=== PATIENT | female | born 1955 | race Caucasian/White ===

== ENCOUNTER 2020-08-08 13:54 | Outpatient (REF) | payer OTHER, SELFPAY ==
[2020-08-08 15:21] LABS: Cholesterol 143 mg/dL; HDL Cholesterol 67 mg/dL; LDL Cholesterol Calculated 54 mg/dl; Triglycerides 113 mg/dL
[2020-08-08 15:45] LABS: Thyroid Stimulating Hormone 4.54 uIU/mL (0.32-4.0)
== END 2020-08-08 13:55 | disposition home or self-care (01) ==
LOC: HO.LAB 13:54
PROVIDERS: PCP Internal Medicine; Visit Provider Internal Medicine
DX: I10 Essential (primary) hypertension (principal)
CPT/HCPCS: 36415; 80061; 84443

== ENCOUNTER 2020-12-11 15:52 | Outpatient (REF) | payer OTHER, SELFPAY ==
--- NOTE | ~2020-12-11 | XR_ITS ---
EXAMINATION: XR KNEE, LEFT CLINICAL INFORMATION: Pain in left knee. COMPARISON: None TECHNIQUE: AP and lateral views of the knee are obtained including AP view with weightbearing. FINDINGS: There is no focal joint narrowing or erosive change or chondrocalcinosis. No suprapatellar effusion. Hoffa's fat pad and deep infrapatellar recess are unremarkable. There is no fracture or dislocation or destructive process. XR/XR knee LT 2V IMPRESSION: Unremarkable left knee.
== END 2020-12-11 15:53 | disposition home or self-care (01) ==
LOC: HO.XRAY 15:52
PROVIDERS: PCP Internal Medicine; Visit Provider Internal Medicine
DX: M25.562 Pain in left knee (principal)
CPT/HCPCS: 73560

== ENCOUNTER 2020-12-14 14:45 | Outpatient (REF) | payer OTHER, SELFPAY ==
[2020-12-14 15:41] LABS: Cholesterol 139 mg/dL; HDL Cholesterol 60 mg/dL; LDL Cholesterol Calculated 57 mg/dl; Triglycerides 113 mg/dL
[2020-12-14 15:57] LABS: Erythrocyte Sedimentation Rate 34 MM/HR (0-20)
== END 2020-12-14 14:46 | disposition home or self-care (01) ==
LOC: HO.LAB 14:45
PROVIDERS: PCP Internal Medicine; Visit Provider Internal Medicine
DX: E03.9 Hypothyroidism, unspecified (principal); I10 Essential (primary) hypertension; E11.9 Type 2 diabetes mellitus without complications
CPT/HCPCS: 36415; 80061; 84443; 85652

== ENCOUNTER 2021-05-02 12:37 | Outpatient (REF) | payer OTHER, SELFPAY ==
[2021-05-02 13:35] LABS: Cholesterol 144 mg/dL; HDL Cholesterol 83 mg/dL; LDL Cholesterol Calculated 45 mg/dl; Triglycerides 80 mg/dL
== END 2021-05-02 12:38 | disposition home or self-care (01) ==
LOC: HO.LAB 12:37
PROVIDERS: PCP Internal Medicine; Visit Provider Internal Medicine
DX: E11.9 Type 2 diabetes mellitus without complications (principal)
CPT/HCPCS: 36415; 80061

== ENCOUNTER 2021-12-28 13:24 | Outpatient (REF) | payer MEDICARE, OTHER, SELFPAY ==
[2021-12-28 13:46] LABS: MANUAL DIFF FLAG NO
[2021-12-28 14:12] LABS: Basophils Percent Auto 0.5 % (0-2); Eosinophils Absolute Auto 0.1 X10*3/uL (0.0-0.4); Eosinophils Percent Auto 1.2 % (0-4); Hematocrit 33.2 % (37.0-47.0); Hemoglobin 11.3 g/dl (12.0-16.0); Imm Gran Abs Auto 0.04 X10*3/uL (0.00-0.03); Imm Gran Pct Auto 0.7 % (0.0-0.4); Lymphocytes Absolute Auto 1.8 X10*3/uL (1.2-4.9); Lymphocytes Percent Auto 29.5 % (20-40); Mean Corpuscular Hemoglobin 33.3 pg (27.0-33.0); Mean Corpuscular Volume 97.9 fL (80.0-98.0); Mean Platelet Volume 9.5 fL (9.4-12.3); Monocytes Absolute Auto 0.7 X10*3/uL (0.1-1.2); Monocytes Percent Auto 11.8 % (2-11); Neutrophils Absolute Auto 3.4 x10*3/uL (2.0-8.3); Neutrophils Percent Auto 56.3 % (45-73); Platelet Count 179 X10*3/uL (160-400); Red Blood Count 3.39 X10*6/uL (4.20-5.50); Red Cell Distribution Width 13.4 % (11.0-16.0)
[2021-12-28 14:34] LABS: Alanine Aminotransferase 35 U/L (0-31); Albumin Level 3.7 g/dL (3.5-5.0); Alkaline Phosphatase 72 U/L (39-117); Anion Gap 12 (12-20); Aspartate Amino Transferase 47 U/L (5-31); Bilirubin Total 0.4 mg/dL (0.0-1.0); Blood Urea Nitrogen 9 mg/dL (9-16); Carbon Dioxide 25 mmol/L (22-29); Chloride 100 mmol/L (96-108); Cholesterol 132 mg/dL; Estimated Glomerular Filt Rate > 60; Glucose Fasting 89 mg/dL (60-99); HDL Cholesterol 53 mg/dL; LDL Cholesterol Calculated 64 mg/dl; Potassium 5.3 mmol/L (3.3-5.1); Sodium 132 mmol/L (135-145); Total Protein 6.2 g/dL (6.5-8.0); Triglycerides 76 mg/dL
== END 2021-12-28 13:25 | disposition home or self-care (01) ==
LOC: HO.LAB 13:24
PROVIDERS: PCP Internal Medicine; Visit Provider Internal Medicine
DX: Z00.00 Encounter for general adult medical examination without abnormal findings (principal); Z13.0 Encounter for screening for diseases of the blood and blood-forming organs and certain disorders involving the immune mechanism
CPT/HCPCS: 36415; 80053; 80061; 85025

== ENCOUNTER 2022-01-04 14:54 | Outpatient (REF) | payer MEDICARE, OTHER, SELFPAY ==
--- NOTE | ~2022-01-04 | XR_ITS ---
EXAMINATION: XR LUMBOSACRAL SPINE CLINICAL INFORMATION: Dorsalis. COMPARISON: Radiograph of the lumbar spine 09/17/2011. TECHNIQUE: Three views of the lumbosacral spine. FINDINGS: No acute compression deformity or malalignment. Radiopaque disc material at T11-T12, stable since 2011. Mild multilevel disc space narrowing. Moderate facet arthropathy at L5-S1. Symmetric sacroiliac joints with mild sclerosis. Atherosclerotic disease of the abdominal aorta. XR/XR lumbar spine 2-3V IMPRESSION: No acute compression deformity or malalignment. Mild to moderate L5-S1 spondylosis.
== END 2022-01-04 14:55 | disposition home or self-care (01) ==
LOC: HO.XRAY 14:54
PROVIDERS: PCP Internal Medicine; Visit Provider Internal Medicine
DX: M54.9 Dorsalgia, unspecified (principal)
CPT/HCPCS: 72100

== ENCOUNTER 2022-05-02 13:55 | Outpatient (REF) | payer MEDICARE, OTHER, SELFPAY ==
[2022-05-02 15:11] LABS: Cholesterol 141 mg/dL; HDL Cholesterol 65 mg/dL; LDL Cholesterol Calculated 53 mg/dl; Triglycerides 117 mg/dL
== END 2022-05-02 13:56 | disposition home or self-care (01) ==
LOC: HO.LAB 13:55
PROVIDERS: PCP Internal Medicine; Visit Provider Internal Medicine
DX: E78.5 Hyperlipidemia, unspecified (principal)
CPT/HCPCS: 36415; 80061

== ENCOUNTER 2022-09-27 15:17 | Outpatient (REF) | payer MEDICARE, OTHER, SELFPAY ==
--- NOTE | ~2022-09-27 | US_ITS ---
EXAMINATION: US VENOUS ULTRASOUND WITH DOPPLER LOWER EXTREMITY, BILATERAL CLINICAL INFORMATION: Localized edema. COMPARISON: None available. TECHNIQUE: Ultrasound of the deep veins is performed from the hip to the calf with compression sonography and color and pulse Doppler assessment. Spectral analysis with color-flow imaging is performed. FINDINGS: RIGHT: There is normal venous compression and respiratory variation and augmented flow. The visualized common femoral vein, superficial femoral vein, profunda femoral vein, popliteal vein, and the trifurcation region shows no evidence of deep venous thrombosis. There is no significant popliteal fossa cyst. LEFT: There is normal venous compression and respiratory variation and augmented flow. The visualized common femoral vein, superficial femoral vein, profunda femoral vein, popliteal vein, and the trifurcation region shows no evidence of deep venous thrombosis. There is no significant popliteal fossa cyst. If the patient's symptoms persist, followup ultrasound in 5 days 7 days might be of value to exclude proximal propagation from a non-visualized calf vein. US/US venous duplex LE BI IMPRESSION: No DVT demonstrated in the bilateral lower extremity.
== END 2022-09-27 15:18 | disposition home or self-care (01) ==
LOC: HO.US 15:17
PROVIDERS: PCP Internal Medicine; Visit Provider Internal Medicine
DX: R60.0 Localized edema (principal)
CPT/HCPCS: 93970

== ENCOUNTER 2022-10-04 18:56 | Emergency (ER) | payer MEDICARE, OTHER, SELFPAY ==
--- NOTE | ~2022-10-04 | US_ITS ---
EXAMINATION: NONINVASIVE ASSESSMENT OF THE ARTERIES OF BOTH LOWER EXTREMITIES Hieu Jones MD CLINICAL INFORMATION: Bilateral lower extremity pain, edema and decreased flow to the feet TECHNIQUE: Bilateral lower extremity duplex ultrasound was performed with velocity measurements and waveform analysis in the common femoral arteries, profunda femoris arteries, proximal mid and distal superficial femoral arteries, popliteal arteries and tibial vessels. This study was performed only at rest. COMPARISON: None FINDINGS: Velocities in cm/sec and phasicity as well as the presence of plaque are reported below. RIGHT LEG: Scattered plaque is seen. Velocity acceleration in the common femoral artery may be secondary to mild nonhemodynamically significant stenosis. Good multiphasic flow is noted throughout the right lower extremity. Common Femoral: 245 Profunda Femoris: 209 Proximal SFA: 112 Mid SFA: 123 Distal SFA: 170 Popliteal: 117 Posterior tibial artery: 160 LEFT LEG: Scattered plaque is seen with the largest area in the common femoral artery with areas of velocity acceleration indicative of nonhemodynamically significant stenosis. Good multiphasic flow is noted throughout the left lower extremity. Common Femoral: 195 Profunda Femoris: 108 Proximal SFA: 137 Mid SFA: 116 Distal SFA: 112 Popliteal: 76 Posterior tibial artery: 69 US/US arterial duplex LE BI IMPRESSION: There is no evidence of any hemodynamically significant lower extremity arterial disease by waveform or duplex Doppler criteria at rest.
--- NOTE | ~2022-10-04 | US_ITS ---
EXAMINATION: US VENOUS ULTRASOUND WITH DOPPLER LOWER EXTREMITY, BILATERAL CLINICAL INFORMATION: Edema. COMPARISON: 09/27/2022. TECHNIQUE: Ultrasound of the deep veins is performed from the hip to the calf with compression sonography and color and pulse Doppler assessment. Spectral analysis with color-flow imaging is performed. FINDINGS: RIGHT: There is normal venous compression and respiratory variation and augmented flow. The visualized common femoral vein, superficial femoral vein, profunda femoral vein, popliteal vein, and the trifurcation region shows no evidence of deep venous thrombosis. There is no significant popliteal fossa cyst. LEFT: There is normal venous compression and respiratory variation and augmented flow. The visualized common femoral vein, superficial femoral vein, profunda femoral vein, popliteal vein, and the trifurcation region shows no evidence of deep venous thrombosis. There is no significant popliteal fossa cyst. If the patient's symptoms persist, followup ultrasound in 5 days 7 days might be of value to exclude proximal propagation from a non-visualized calf vein. US/US venous duplex LE BI IMPRESSION: No DVT demonstrated in the bilateral lower extremities.
--- NOTE | 2022-10-04 19:09 | ED_ITS ---
HPI - General Adult General Chief complaint: General Medical <JAVIER Acosta - Last Filed: 10/04/22 19:11> Stated complaint: Swelling in R leg <JAVIER Acosta - Last Filed: 10/04/22 19:11> Time Seen by Provider: 10/04/22 22:23 <JAVIER Acosta - Last Filed: 10/04/22 19:11> Source: patient <Mike Sarmiento MD - Last Filed: 10/04/22 23:20> Mode of arrival: ambulatory <Mike Sarmiento MD - Last Filed: 10/04/22 23:20> Limitations: no limitations <Mike Sarmiento MD - Last Filed: 10/04/22 23:20> History of Present Illness HPI narrative: Patient has history of hypertension, dyslipidemia, coronary disease status post RAMO 2007 in mid LAD with history of gout on probenecid last flare up was about 6 years ago. Comes here for right ankle pain and swelling last 2 weeks patient was seen by PCP and had venous Doppler done on 09/27 which was negative patient was triaged and again had arterial Doppler and venous Doppler done which both are negative patient feels throbbing pain even when she is not moving her ankle <Mike Sarmiento MD - Last Filed: 10/04/22 23:20> Related Data Home medications: Home Medications Medication Instructions Recorded Confirmed aspirin 81 mg tablet,delayed 81 mg PO DAILY 12/11/20 09/27/22 release (Adult Low Dose Aspirin) lisinopril 10 mg tablet 10 mg PO DAILY 12/11/20 09/27/22 metoprolol tartrate 25 mg tablet 25 mg PO BID 12/11/20 09/27/22 multivitamin 1 tab PO DAILY 12/11/20 09/27/22 rosuvastatin 40 mg tablet 40 mg PO DAILY 12/11/20 09/27/22 Previous Rx's Medication Instructions Recorded probenecid 500 mg tablet 500 mg PO DAILY #90 tabs 06/29/22 colchicine 0.6 mg tablet 0.6 mg PO BID #20 tabs 10/04/22 prednisone 20 mg tablet 40 mg PO DAILY #10 tabs 10/04/22 <JAVIER Acosta - Last Filed: 10/04/22 19:11> Allergies/adverse reactions: Allergies Allergy/AdvReac Type Severity Reaction Status Date / Time allopurinol [ALLOPURINOL] Allergy Intermediate RASH Verified 09/27/22 14:34 <JAVIER Acosta - Last Filed: 10/04/22 19:11> Review of Systems Review of Systems: Yes all other systems are reviewed and are negative <Mike Sarmiento MD - Last Filed: 10/04/22 23:20> [facility] Past Medical History Medical History: Medical History (Updated 10/04/22 @ 23:19 by Mike Sarmiento MD) Gout Hypertension <JAVIER Acosta - Last Filed: 10/04/22 19:11> Surgical History: Surgical History H/O left wrist surgery History of cardiac catheterization <JAVIER Acosta - Last Filed: 10/04/22 19:11> Family History Family History: Family History Father Heart disease Mother Heart disease Brother No problems noted. Sister No problems noted. Sister No problems noted. Son No problems noted. Son No problems noted. <JAVIER Acosta - Last Filed: 10/04/22 19:11> Social History Social History: Social History Housing: House Alcohol intake: current Alcohol intake frequency: holidays/special occasions only Patient Tobacco Use Status: Former Tobacco user Tobacco use type: Cigarette e-Cigarette/Vaping Use: Never Used Second Hand Smoke Exposure: No Advance Directives: No Advance Directives Information Provided: No service: No Current occupational status: retired Cognitive needs: No Hearing needs: No Vision needs: No <JAVIER Acosta - Last Filed: 10/04/22 19:11> Physical Exam ED Vital Signs: Vital Signs - 24 hr 10/04/22 19:20 Temperature 98.5 F Pulse Rate 77 Respiratory Rate 16 Blood Pressure 184/77 H Pulse Oximetry 100 Oxygen Delivery Method Room Air BMI result Body Mass Index 19.4 <JAVIER Acosta - Last Filed: 10/04/22 19:11> Vital Signs - 24 hr 10/04/22 19:20 Temperature 98.5 F Pulse Rate 77 Respiratory Rate 16 Blood Pressure 184/77 H Pulse Oximetry 100 Oxygen Delivery Method Room Air BMI result Body Mass Index 19.4 <Mike Sarmiento MD - Last Filed: 10/04/22 23:20> Appearance: Alert. Oriented X3. No acute distress. Eyes: No pallor or icterus ENT: Pharynx normal. Oral Mucosa moist Neck: Normal inspection. Neck supple. CVS: Normal heart rate and rhythm. Pulses normal. Respiratory: No respiratory distress. Equal air entry bilateral, no wheezing/rales/rhonchi Abdomen: Soft and nontender. Bowel sounds are present, no mass palpable, no CVA tenderness Skin: Skin warm and dry. Normal skin color. Normal skin turgor. Extremities: Trace edema right leg diffuse right ankle joint swelling with local warmth and tenderness, No calf tenderness Neuro: Oriented X 3. No motor deficit. <Mike Sarmiento MD - Last Filed: 10/04/22 23:20> Course Course Course Narrative: RME performed by Natalie Banks PA-C. Patient is a 67 year old assigned female at presenting to the emergency department with bilateral foot swelling and pain. Patient states that for the last 2 weeks she has had bilateral feet swelling and pain. Labs and imaging ordered. Patient placed back in the waiting room pending room availability and results. <Cortez Acosta - Last Filed: 10/04/22 19:11> Medications Administered Discontinued Medications Generic Name Dose Route Start Last Admin Trade Name Freq PRN Reason Stop Dose Admin Colchicine 0.6 mg 10/04/22 22:37 10/04/22 23:06 Colchicine 0.6 Mg Tablet PO 10/04/22 22:38 0.6 mg ONCE ONE Administration Prednisone 40 mg 10/04/22 22:37 10/04/22 23:06 Prednisone 20 Mg Tablet PO 10/04/22 22:38 40 mg ONCE ONE Administration <JAVIER Acosta - Last Filed: 10/04/22 19:11> Medications Administered Discontinued Medications Generic Name Dose Route Start Last Admin Trade Name Freq PRN Reason Stop Dose Admin Colchicine 0.6 mg 10/04/22 22:37 10/04/22 23:06 Colchicine 0.6 Mg Tablet PO 10/04/22 22:38 0.6 mg ONCE ONE Administration Prednisone 40 mg 10/04/22 22:37 10/04/22 23:06 Prednisone 20 Mg Tablet PO 10/04/22 22:38 40 mg ONCE ONE Administration <Mike Sarmiento MD - Last Filed: 10/04/22 23:20> Medical Decision Making Medical Decision Making [facility] Narrative: Patient clinically with gouty arthritis history of gout attack about 6 years ago. Patient is on probenecid although uric acid level is normal possible patient has a flare uop will discharge patient home on colchicine and prednisone <Mike Sarmiento MD - Last Filed: 10/04/22 23:20> Lab Data [facility] Lab Attestation statement: I reviewed the patient's lab results. <Mike Sarmiento MD - Last Filed: 10/04/22 23:20> Result Diagrams: 10/04/22 21:00 10/04/22 21:00 <JAVIER Acosta - Last Filed: 10/04/22 19:11> Labs: Lab Results 10/04/22 10/04/22 10/04/22 Range/Units 21:00 21:00 21:00 WBC 6.8 (4.8-10.8) X10*3/uL RBC 3.48 L (4.20-5.50) X10*6/uL Hgb 12.1 (12.0-16.0) g/dl Hct 36.2 L (37.0-47.0) % MCV 104.0 H (80.0-98.0) fL MCH 34.8 H (27.0-33.0) pg MCHC 33.4 (31.0-35.0) g/dl RDW 13.2 (11.0-16.0) % Plt Count 284 D (160-400) X10*3/uL MPV 9.5 (9.4-12.3) fL Immature Gran % (Auto) 0.4 (0.0-0.4) % Neut % (Auto) 51.0 (45-73) % Lymph % (Auto) 38.2 (20-40) % Morrill % (Auto) 8.9 (2-11) % Eos % (Auto) 0.9 (0-4) % Baso % (Auto) 0.6 (0-2) % Lymph # (Auto) 2.6 (1.2-4.9) X10*3/uL Morrill # (Auto) 0.6 (0.1-1.2) X10*3/uL Eos # (Auto) 0.1 (0.0-0.4) X10*3/uL Baso # (Auto) 0.0 (0.0-0.2) X10*3/uL Abs Immat Gran (auto) 0.03 (0.00-0.03) X10*3/uL Absolute Neuts (auto) 3.4 (2.0-8.3) x10*3/uL Absolute Nucleated RBC 0.000 (0.0-0.012) X10*3/uL Nucleated RBC % (auto) 0.0 (0.0-0.2) /100WBC ESR 38 H (0-20) MM/HR PT (10.0-13.1) SEC INR (0.9-1.1) APTT (26.0-36.4) SEC Sodium 138 (135-145) mmol/L Potassium 4.2 D (3.3-5.1) mmol/L Chloride 103 (96-108) mmol/L Carbon Dioxide 25 (22-29) mmol/L Anion Gap 14 (12-20) BUN 6 L (9-16) mg/dL Creatinine 1.03 (0.5-1.4) mg/dL Estim Creat Clear Calc 39.6 Estimated GFR 54 Random Glucose 107 (60-115) mg/dL Uric Acid 3.6 (2.4-5.7) mg/dL Calcium 9.7 D (8.4-10.2) mg/dL Magnesium 2.0 (1.6-2.6) mg/dL Total Bilirubin 0.3 (0.0-1.0) mg/dL AST 35 H (5-31) U/L ALT 14 (0-31) U/L Alkaline Phosphatase 145 H (39-117) U/L C-Reactive Protein 0.54 H (< or = 0.50) mg/dL Total Protein 7.1 (6.5-8.0) g/dL Albumin 4.0 (3.5-5.0) g/dL 04/14/23 Range/Units 21:00 WBC (4.8-10.8) X10*3/uL RBC (4.20-5.50) X10*6/uL Hgb (12.0-16.0) g/dl Hct (37.0-47.0) % MCV (80.0-98.0) fL MCH (27.0-33.0) pg MCHC (31.0-35.0) g/dl RDW (11.0-16.0) % Plt Count (160-400) X10*3/uL MPV (9.4-12.3) fL Immature Gran % (Auto) (0.0-0.4) % Neut % (Auto) (45-73) % Lymph % (Auto) (20-40) % Morrill % (Auto) (2-11) % Eos % (Auto) (0-4) % Baso % (Auto) (0-2) % Lymph # (Auto) (1.2-4.9) X10*3/uL Morrill # (Auto) (0.1-1.2) X10*3/uL Eos # (Auto) (0.0-0.4) X10*3/uL Baso # (Auto) (0.0-0.2) X10*3/uL Abs Immat Gran (auto) (0.00-0.03) X10*3/uL Absolute Neuts (auto) (2.0-8.3) x10*3/uL Absolute Nucleated RBC (0.0-0.012) X10*3/uL Nucleated RBC % (auto) (0.0-0.2) /100WBC ESR (0-20) MM/HR PT 9.3 L (10.0-13.1) SEC INR 0.8 L (0.9-1.1) APTT 31.1 (26.0-36.4) SEC Sodium (135-145) mmol/L Potassium (3.3-5.1) mmol/L Chloride (96-108) mmol/L Carbon Dioxide (22-29) mmol/L Anion Gap (12-20) BUN (9-16) mg/dL Creatinine (0.5-1.4) mg/dL Estim Creat Clear Calc Estimated GFR Random Glucose (60-115) mg/dL Uric Acid (2.4-5.7) mg/dL Calcium (8.4-10.2) mg/dL Magnesium (1.6-2.6) mg/dL Total Bilirubin (0.0-1.0) mg/dL AST (5-31) U/L ALT (0-31) U/L Alkaline Phosphatase (39-117) U/L C-Reactive Protein (< or = 0.50) mg/dL Total Protein (6.5-8.0) g/dL Albumin (3.5-5.0) g/dL <JAVIER Acosta - Last Filed: 10/04/22 19:11> Lab Results 10/04/22 10/04/22 10/04/22 Range/Units 21:00 21:00 21:00 WBC 6.8 (4.8-10.8) X10*3/uL RBC 3.48 L (4.20-5.50) X10*6/uL Hgb 12.1 (12.0-16.0) g/dl Hct 36.2 L (37.0-47.0) % MCV 104.0 H (80.0-98.0) fL MCH 34.8 H (27.0-33.0) pg MCHC 33.4 (31.0-35.0) g/dl RDW 13.2 (11.0-16.0) % Plt Count 284 D (160-400) X10*3/uL MPV 9.5 (9.4-12.3) fL Immature Gran % (Auto) 0.4 (0.0-0.4) % Neut % (Auto) 51.0 (45-73) % Lymph % (Auto) 38.2 (20-40) % Morrill % (Auto) 8.9 (2-11) % Eos % (Auto) 0.9 (0-4) % Baso % (Auto) 0.6 (0-2) % Lymph # (Auto) 2.6 (1.2-4.9) X10*3/uL Morrill # (Auto) 0.6 (0.1-1.2) X10*3/uL Eos # (Auto) 0.1 (0.0-0.4) X10*3/uL Baso # (Auto) 0.0 (0.0-0.2) X10*3/uL Abs Immat Gran (auto) 0.03 (0.00-0.03) X10*3/uL Absolute Neuts (auto) 3.4 (2.0-8.3) x10*3/uL Absolute Nucleated RBC 0.000 (0.0-0.012) X10*3/uL Nucleated RBC % (auto) 0.0 (0.0-0.2) /100WBC ESR 38 H (0-20) MM/HR PT (10.0-13.1) SEC INR (0.9-1.1) APTT (26.0-36.4) SEC Sodium 138 (135-145) mmol/L Potassium 4.2 D (3.3-5.1) mmol/L Chloride 103 (96-108) mmol/L Carbon Dioxide 25 (22-29) mmol/L Anion Gap 14 (12-20) BUN 6 L (9-16) mg/dL Creatinine 1.03 (0.5-1.4) mg/dL Estim Creat Clear Calc 39.6 Estimated GFR 54 Random Glucose 107 (60-115) mg/dL Uric Acid 3.6 (2.4-5.7) mg/dL Calcium 9.7 D (8.4-10.2) mg/dL Magnesium 2.0 (1.6-2.6) mg/dL Total Bilirubin 0.3 (0.0-1.0) mg/dL AST 35 H (5-31) U/L ALT 14 (0-31) U/L Alkaline Phosphatase 145 H (39-117) U/L C-Reactive Protein 0.54 H (< or = 0.50) mg/dL Total Protein 7.1 (6.5-8.0) g/dL Albumin 4.0 (3.5-5.0) g/dL 10/04/22 Range/Units 21:00 WBC (4.8-10.8) X10*3/uL RBC (4.20-5.50) X10*6/uL Hgb (12.0-16.0) g/dl Hct (37.0-47.0) % MCV (80.0-98.0) fL MCH (27.0-33.0) pg MCHC (31.0-35.0) g/dl RDW (11.0-16.0) % Plt Count (160-400) X10*3/uL MPV (9.4-12.3) fL Immature Gran % (Auto) (0.0-0.4) % Neut % (Auto) (45-73) % Lymph % (Auto) (20-40) % Morrill % (Auto) (2-11) % Eos % (Auto) (0-4) % Baso % (Auto) (0-2) % Lymph # (Auto) (1.2-4.9) X10*3/uL Morrill # (Auto) (0.1-1.2) X10*3/uL Eos # (Auto) (0.0-0.4) X10*3/uL Baso # (Auto) (0.0-0.2) X10*3/uL Abs Immat Gran (auto) (0.00-0.03) X10*3/uL Absolute Neuts (auto) (2.0-8.3) x10*3/uL Absolute Nucleated RBC (0.0-0.012) X10*3/uL Nucleated RBC % (auto) (0.0-0.2) /100WBC ESR (0-20) MM/HR PT 9.3 L (10.0-13.1) SEC INR 0.8 L (0.9-1.1) APTT 31.1 (26.0-36.4) SEC Sodium (135-145) mmol/L Potassium (3.3-5.1) mmol/L Chloride (96-108) mmol/L Carbon Dioxide (22-29) mmol/L Anion Gap (12-20) BUN (9-16) mg/dL Creatinine (0.5-1.4) mg/dL Estim Creat Clear Calc Estimated GFR Random Glucose (60-115) mg/dL Uric Acid (2.4-5.7) mg/dL Calcium (8.4-10.2) mg/dL Magnesium (1.6-2.6) mg/dL Total Bilirubin (0.0-1.0) mg/dL AST (5-31) U/L ALT (0-31) U/L Alkaline Phosphatase (39-117) U/L C-Reactive Protein (< or = 0.50) mg/dL Total Protein (6.5-8.0) g/dL Albumin (3.5-5.0) g/dL <Mike Sarmiento MD - Last Filed: 10/04/22 23:20> Discharge Plan Discharge Clinical Impression: Acute gouty arthritis <JAVIER Acosta - Last Filed: 10/04/22 19:11> Patient Disposition: Home, Self-Care <JAVIER Acosta - Last Filed: 10/04/22 19:11> Instructions: Gout (ED) <JAVIER Acosta - Last Filed: 10/04/22 19:11> Additional Instructions: Likely you have gout that causing the pain in right ankle Medication as prescribed Follow with PCP if not better <JAVIER Acosta - Last Filed: 10/04/22 19:11> Prescriptions: New prednisone 20 mg tablet 40 mg PO DAILY Qty: 10 0RF colchicine 0.6 mg tablet 0.6 mg PO BID Qty: 20 0RF No Action probenecid 500 mg tablet 500 mg PO DAILY Qty: 90 8RF rosuvastatin 40 mg tablet 40 mg PO DAILY metoprolol tartrate 25 mg tablet 25 mg PO BID lisinopril 10 mg tablet 10 mg PO DAILY multivitamin Tablet 1 tab PO DAILY aspirin [Adult Low Dose Aspirin] 81 mg tablet,delayed release (DR/EC) 81 mg PO DAILY <JAVIER Acosta - Last Filed: 10/04/22 19:11> [place]: [facility] [place] (Call to establish and follow up with a vascular surgeon to discuss your bilateral venous stasis dermatitis. ) <JAVIER Acosta - Last Filed: 10/04/22 19:11>
[2022-10-04 19:20] VITALS: BP 184/77; PULSE 77; RESP 16; TEMP 36.9; O2SAT 100; BMI 19.4
[2022-10-04 21:14] LABS: MANUAL DIFF FLAG NO
[2022-10-04 21:16] LABS: Basophils Percent Auto 0.6 % (0-2); Eosinophils Absolute Auto 0.1 X10*3/uL (0.0-0.4); Eosinophils Percent Auto 0.9 % (0-4); Hematocrit 36.2 % (37.0-47.0); Hemoglobin 12.1 g/dl (12.0-16.0); Imm Gran Abs Auto 0.03 X10*3/uL (0.00-0.03); Imm Gran Pct Auto 0.4 % (0.0-0.4); Lymphocytes Absolute Auto 2.6 X10*3/uL (1.2-4.9); Lymphocytes Percent Auto 38.2 % (20-40); Mean Corpuscular HGB Conc 33.4 g/dl (31.0-35.0); Mean Corpuscular Hemoglobin 34.8 pg (27.0-33.0); Mean Platelet Volume 9.5 fL (9.4-12.3); Monocytes Absolute Auto 0.6 X10*3/uL (0.1-1.2); Monocytes Percent Auto 8.9 % (2-11); Neutrophils Absolute Auto 3.4 x10*3/uL (2.0-8.3); Platelet Count 284 X10*3/uL (160-400); Red Blood Count 3.48 X10*6/uL (4.20-5.50); Red Cell Distribution Width 13.2 % (11.0-16.0); White Blood Count 6.8 X10*3/uL (4.8-10.8)
[2022-10-04 21:24] LABS: INTERNATIONAL NORM RATIO 0.8 (0.9-1.1); Prothrombin Time 9.3 SEC (10.0-13.1)
[2022-10-04 21:26] LABS: Partial Thromboplastin Time 31.1 SEC (26.0-36.4)
[2022-10-04 21:40] LABS: Alanine Aminotransferase 14 U/L (0-31); Alkaline Phosphatase 145 U/L (39-117); Anion Gap 14 (12-20); Aspartate Amino Transferase 35 U/L (5-31); Bilirubin Total 0.3 mg/dL (0.0-1.0); Blood Urea Nitrogen 6 mg/dL (9-16); C Reactive Protein 0.54 mg/dL (< or = 0.50); Calcium 9.7 mg/dL (8.4-10.2); Carbon Dioxide 25 mmol/L (22-29); Chloride 103 mmol/L (96-108); Creatinine Clr Calc Pharmacy 39.6; Estimated Glomerular Filt Rate 54; Glucose Random 107 mg/dL (60-115); Potassium 4.2 mmol/L (3.3-5.1); Sodium 138 mmol/L (135-145); Total Protein 7.1 g/dL (6.5-8.0)
[2022-10-04 21:57] LABS: Erythrocyte Sedimentation Rate 38 MM/HR (0-20)
[2022-10-04] MEDS: Colchicine 0.6 MG TABLET PO (23:06)
[2022-10-04] MEDS: predniSONE 20 MG TABLET 40 MG PO (23:06)
[2022-10-04 23:07] LABS: Uric Acid 3.6 mg/dL (2.4-5.7)
== END 2022-10-04 23:32 | disposition home or self-care (01) ==
PROVIDERS: Physician Assistant Medical; Emergency Provider Internal Medicine
DX: M10.9 Gout, unspecified (principal); R60.0 Localized edema; M79.604 Pain in right leg; M79.605 Pain in left leg; I10 Essential (primary) hypertension; E78.5 Hyperlipidemia, unspecified; Z79.82 Long term (current) use of aspirin; Z79.899 Other long term (current) drug therapy; Z79.02 Long term (current) use of antithrombotics/antiplatelets
CPT/HCPCS: 36415; 80053; 83735; 84550; 85025; 85610; 85652; 85730; 86140; 93925; 93970; 99282; 99284

== ENCOUNTER 2023-01-24 11:45 | Outpatient (REF) | payer MEDICARE, OTHER, SELFPAY ==
[2023-01-24 15:10] LABS: Cholesterol 136 mg/dL; HDL Cholesterol 66 mg/dL; LDL Cholesterol Calculated 52 mg/dl; Triglycerides 90 mg/dL
== END 2023-01-24 11:46 | disposition home or self-care (01) ==
LOC: HO.LAB 11:45
PROVIDERS: PCP Internal Medicine; Visit Provider Internal Medicine
DX: E78.5 Hyperlipidemia, unspecified (principal)
CPT/HCPCS: 36415; 80061

== ENCOUNTER 2023-01-27 14:15 | Outpatient (AMB) | payer MEDICARE, OTHER, SELFPAY ==
[2023-01-27 14:24] VITALS: BP 128/78; PULSE 64; O2SAT 98; BMI 21.5
--- NOTE | 2023-01-27 14:24 | A.OFFPC_ITS ---
Vital Signs 01/27/23 14:24 Height 5 ft 1 in Weight 114 lb BMI 21.5 BP 128/78 Blood Pressure Location Lt brachial Position Sitting Pulse 64 Pulse Source Pulse Oximeter Pulse Oximetry (%) 98 Oxygen Delivery Method Room Air Intake Visit Reasons: 4mth f/u Allergies allopurinol [ALLOPURINOL] Allergy (Intermediate, Verified 01/27/23 14:25) RASH Medication List - Last Reconciled 01/28/23 by Ralf Talavera MD aspirin (Adult Low Dose Aspirin) 81 mg PO DAILY colchicine (gout) 0.6 mg PO BID lisinopril 10 mg PO DAILY metoprolol tartrate 25 mg PO BID multivitamin 1 tab PO DAILY prednisone 40 mg (2 x 20 mg) PO DAILY probenecid 500 mg PO BID rosuvastatin 40 mg PO DAILY Tobacco use date assessed: 09/27/22 Fall risk assessment: No Falls in past year Last assessed Fall Risk: 01/27/23 Dental Screening Dental Screen Date: 01/27/23 Did you have a dental visit in the last 12 months?: Yes Did you have a dental problem in the last 6 months where you did not have access to dental care?: No Was dental information given to patient?: Patient has dentist HPI 4mth f/u HPI Details HTN hyperlipidemia and gout; stable on rx PFSH Medical History (Updated 01/28/23 @ 09:30 by Ralf Talavera MD) Gout Hypertension Surgical History H/O left wrist surgery History of cardiac catheterization Family History Father Heart disease Mother Heart disease Brother No problems noted. Sister No problems noted. Sister No problems noted. Son No problems noted. Son No problems noted. Social History Housing: House Alcohol intake: current Alcohol intake frequency: holidays/special occasions only Patient Tobacco Use Status: Former Tobacco user Tobacco use type: Cigarette e-Cigarette/Vaping Use: Never Used Second Hand Smoke Exposure: No service: No Current occupational status: retired Cognitive needs: No Hearing needs: No Vision needs: No Questionnaire PHQ-9 Over the last 2 weeks, how often have you been bothered by any of the following problems? 1. Little interest or pleasure in doing things: not at all 2. Feeling down, depressed, or hopeless: not at all 3. Trouble falling or staying asleep, or sleeping too much: not at all 4. Feeling tired or having little energy: not at all 5. Poor appetite or overeating: not at all 6. Feeling bad about yourself - or that you are a failure or have let yourself or your family down: not at all 7. Trouble concentrating on things, such as reading the newspaper or watching television: not at all 8. Moving or speaking so slowly that other people could have noticed. Or the opposite - being so fidgety or restless that you have been moving around a lot more than usual: not at all 9. Thoughts that you would be better off or of hurting yourself in some way: not at all Total score: 0 Depression Screening Interpretation: Negative Source: Developed by Drs. Leonel Fields, Victoria Rodriguez, Edwin Resendez and colleagues, with an educational neli from [employer]. Thrive Questionnaire Date Thrive assessed: 09/27/22 Currently or been in a relationship where the following occur: no concerns reported AUDIT C Alcohol Use Questionnaire (AUDIT-C) 1. How often do you have a drink containing alcohol?: Monthly or less Total Score: 1 Score Reviewed/Action Taken: Yes MADELYN-7 AMB Questionnaire MADELYN-7 Date MADELYN - 7 assessed: 09/27/22 Source: Developed by Drs. Leonel Fields, Victoria Rodriguez, Edwin Resendez and colleagues, with an educational neli from [employer]. Review of Systems Const Denies chills, Denies headache(s) and Denies weight loss ENT Denies headache(s) Card Denies chest pain, Denies syncope, Denies irregular heart rhythm and Denies dyspnea Resp Denies chest congestion, Denies cough and Denies dyspnea GI Denies abdominal pain, Denies change in stool character, Denies nausea and Denies vomiting Musc Denies deformity and Denies joint swelling Neuro Denies syncope and Denies headache(s) Physical exam (Primary Care) Vital Signs: Last Vital Signs Pulse 64 01/27/23 14:24 BP 128/78 01/27/23 14:24 Pulse Ox 98 01/27/23 14:24 Oxygen Delivery Method Room Air 01/27/23 14:24 BMI result Body Mass Index 21.5 Tobacco/Smoking Status: Tobacco use Status Tobacco use date assessed 09/27/22 01/27/23 14:28 Patient Tobacco Use Status Former Tobacco user 01/27/23 14:28 Tobacco use type Cigarette 01/27/23 14:28 e-Cigarette/Vaping Use Never Used 01/27/23 14:28 PHQ-9: PHQ-9 Score PHQ-9: Total score 0 01/27/23 14:28 Depression Screening Interpretation: Negative Thrive Assessment: Date of Thrive Assessment Date Thrive assessed 09/27/22 01/27/23 14:28 Currently or been in a relationship where the following occur: no concerns reported Const General: cooperative, healthy appearing, comfortable and no acute distress Resp Effort & Inspection: normal respiratory effort Auscultation: clear to auscultation bilaterally Percussion: percussion normal Cardio Jugular venous distension: no JVD Rate: regular rate Rhythm: regular rhythm GI Inspection: Yes normal to inspection Assessment and Plan Assessment & Plan (1) Hyperlipidemia: Code(s): E78.5 - Hyperlipidemia, unspecified Plan: stable; same rx (2) Hypertension: Code(s): I10 - Essential (primary) hypertension Plan: stable; same rx (3) Gout: Code(s): M10.9 - Gout, unspecified Plan: stable Orders: Orders Lipid Panel 01/27/23 E78.5 - Hyperlipidemia, unspecified Uric Acid 01/27/23 M10.9 - Gout, unspecified Medications: Changed From probenecid 500 mg PO DAILY 90 tabs 8RF To probenecid 500 mg PO BID 180 tabs 8RF Coding Level of Care Code Est Pt Level 4 (43394) Diagnoses Hyperlipidemia E78.5 Hypertension I10 Gout M10.9
== END 2023-01-27 14:41 | disposition home or self-care (01) ==
PROVIDERS: Visit Provider Internal Medicine
DX: E78.5 Hyperlipidemia, unspecified (principal); I10 Essential (primary) hypertension; M10.9 Gout, unspecified
CPT/HCPCS: 99214

== ENCOUNTER 2023-09-03 12:54 | Outpatient (REF) | payer MEDICARE, OTHER, SELFPAY ==
[2023-09-03 14:55] LABS: Cholesterol 136 mg/dL (<200); HDL Cholesterol 68 mg/dL (>40); LDL Cholesterol Calculated 40 mg/dL (<100); Triglycerides 142 mg/dL (<150)
[2023-09-03 16:22] LABS: Uric Acid 3.9 mg/dL (2.4-5.7)
== END 2023-09-03 12:55 | disposition home or self-care (01) ==
LOC: HO.LAB 12:54
PROVIDERS: PCP Internal Medicine; Visit Provider Internal Medicine
DX: M10.9 Gout, unspecified (principal); E78.5 Hyperlipidemia, unspecified
CPT/HCPCS: 36415; 80061; 84550

== ENCOUNTER 2023-09-04 11:40 | Outpatient (AMB) | payer MEDICARE, OTHER, SELFPAY ==
[2023-09-04 11:41] VITALS: BP 122/66; PULSE 71; O2SAT 100; BMI 22.9
--- NOTE | 2023-09-04 11:41 | MHC.PC.OV ---
Vital Signs 09/04/23 11:41 Height 5 ft 1 in Weight 121 lb BMI 22.9 BP 122/66 Blood Pressure Location Lt brachial Position Sitting Pulse 71 Pulse Source Pulse Oximeter Pulse Oximetry (%) 100 Oxygen Delivery Method Room Air Intake Visit Reasons: 6 month f/u Systems Consultant Required: No Insurance Licensing Supervisor: Not Required per policy Accompanied by: Self / Same As Patient Allergies allopurinol [ALLOPURINOL] Allergy (Intermediate, Verified 09/04/23 11:41) RASH Medication List - Last Reconciled 09/05/23 by Ralf Talavera MD aspirin (Adult Low Dose Aspirin) 81 mg PO DAILY lisinopril 10 mg PO DAILY metoprolol tartrate 25 mg PO BID multivitamin 1 tab PO DAILY probenecid 500 mg PO BID rosuvastatin 40 mg PO DAILY Tobacco use date assessed: 09/04/23 Fall risk assessment: No Falls in past year Last assessed Fall Risk: 09/04/23 Dental Screening Dental Screen Date: 09/04/23 Did you have a dental visit in the last 12 months?: Yes Did you have a dental problem in the last 6 months where you did not have access to dental care?: No Was dental information given to patient?: Patient has dentist HPI 6 month f/u HPI Details HTN hyperlip and gout on rx; doing well and compliant [facility] Medical History Gout Hypertension Surgical History History of cardiac catheterization H/O left wrist surgery Family History Father Heart disease Mother Heart disease Brother No problems noted. Sister No problems noted. Sister No problems noted. Son No problems noted. Son No problems noted. Social History Housing: House Alcohol intake: current Alcohol intake frequency: holidays/special occasions only Patient Tobacco Use Status: Former Tobacco user Tobacco use type: Cigarette e-Cigarette/Vaping Use: Never Used Second Hand Smoke Exposure: No service: No Current occupational status: retired Cognitive needs: No Hearing needs: No Vision needs: No Questionnaire PHQ-9 Over the last 2 weeks, how often have you been bothered by any of the following problems? 1. Little interest or pleasure in doing things: not at all 2. Feeling down, depressed, or hopeless: not at all 3. Trouble falling or staying asleep, or sleeping too much: not at all 4. Feeling tired or having little energy: not at all 5. Poor appetite or overeating: not at all 6. Feeling bad about yourself - or that you are a failure or have let yourself or your family down: not at all 7. Trouble concentrating on things, such as reading the newspaper or watching television: not at all 8. Moving or speaking so slowly that other people could have noticed. Or the opposite - being so fidgety or restless that you have been moving around a lot more than usual: not at all 9. Thoughts that you would be better off or of hurting yourself in some way: not at all Total score: 0 Depression Screening Interpretation: Negative Depression Screening Done: Yes 16442 - PHQ-9 Billing: Yes Source: Developed by Drs. Leonel Fields, Victoria Rodriguez, Edwin Resendez and colleagues, with an educational neli from [employer]. Thrive Questionnaire Date Thrive assessed: 09/04/23 I am a: Patient What is your living situation today?: I have a steady place to live Within the past 12 months, did the food you bought not last and you didn't have the money to get more?: Never true Within the past 12 months, did you worry whether your food would run out before you got money to buy more?: Never true Do you have trouble paying for medicines?: No Do you have trouble getting transportation to medical appointments?: No Do you have trouble paying your heating and electricity bill?: No Do you have trouble taking care of your child, family member or friend?: No Do you have trouble with day-to-day activities such as bathing, preparing meals, shopping, managing finances, etc.?: No Are you currently unemployed and looking for a job?: No Are you interested in more education?: No Please select the resources that you would like help with: None THRIVE Score: 0 AUDIT C Alcohol Use Questionnaire (AUDIT-C) 1. How often do you have a drink containing alcohol?: Monthly or less Total Score: 1 Score Reviewed/Action Taken: Yes MADELYN-7 AMB Questionnaire MADELYN-7 Date MADELYN - 7 assessed: 09/04/23 Feeling nervous, anxious, or on edge: 0 = Not at all Not being able to stop or control worryin = Not at all Worrying too much about different things: 0 = Not at all Trouble relaxin = Not at all Being so restless that it is hard to sit still: 0 = Not at all Becoming easily annoyed or irritable: 0 = Not at all Feeling afraid as if something awful might happen: 0 = Not at all Total MADELYN-7 score (0-4 normal; 5-9 mild; 10-14 moderate; 15-21 severe): 0 Source: Developed by Drs. Leonel Fields, Victoria Rodriguez, Edwin Resendez and colleagues, with an educational neli from [employer]. MADELYN-7 Assessment Billing MADELYN-7 Assessment Tool: MADELYN-7 Assessment 40943 Review of Systems Const Denies chills, Denies headache(s) and Denies weight loss ENT Denies headache(s) Card Denies chest pain, Denies syncope, Denies irregular heart rhythm and Denies dyspnea Resp Denies chest congestion, Denies cough and Denies dyspnea GI Denies abdominal pain, Denies change in stool character, Denies nausea and Denies vomiting Musc Denies deformity and Denies joint swelling Neuro Denies syncope and Denies headache(s) Physical exam (Primary Care) Vital Signs: Last Vital Signs Pulse 71 09/04/23 11:41 BP 122/66 09/04/23 11:41 Pulse Ox 100 09/04/23 11:41 Oxygen Delivery Method Room Air 09/04/23 11:41 BMI result Body Mass Index 22.9 Tobacco/Smoking Status: Tobacco use Status Tobacco use date assessed 09/04/23 09/04/23 11:47 Patient Tobacco Use Status Former Tobacco user 09/04/23 11:47 Tobacco use type Cigarette 09/04/23 11:47 e-Cigarette/Vaping Use Never Used 09/04/23 11:47 PHQ-9: PHQ-9 Score PHQ-9: Total score 0 09/04/23 11:47 Depression Screening Interpretation: Negative Thrive Assessment: Date of Thrive Assessment Date Thrive assessed 09/04/23 09/04/23 11:47 Const General: cooperative, comfortable, no acute distress and alert Neck Neck: Yes no lymphadenopathy Thyroid: Thyroid normal Resp Effort & Inspection: normal respiratory effort Auscultation: clear to auscultation bilaterally Percussion: percussion normal Cardio Jugular venous distension: no JVD Palpation: normal PMI Rate: regular rate Rhythm: regular rhythm Heart sounds: S1 normal heart sound present and S2 normal heart sound present GI Inspection: Yes normal to inspection Palpation (GI): No hepatosplenomegaly present Skin General skin exam: no rashes or lesions noted Extrem General: Yes no clubbing, cyanosis or edema Assessment and Plan Assessment & Plan (1) Gout: Code(s): M10.9 - Gout, unspecified Plan: stable; same rx (2) Hyperlipidemia: Code(s): E78.5 - Hyperlipidemia, unspecified Plan: stable; same rx (3) Hypertension: Code(s): I10 - Essential (primary) hypertension Plan: stable; same rx Orders: Orders Lipid Panel Today E78.5 - Hyperlipidemia, unspecified Uric Acid Today M10.9 - Gout, unspecified Coding Level of Care Code Est Pt Level 4 (94870) Diagnoses Gout M10.9 Hyperlipidemia E78.5 Hypertension I10 Additional Codes MADELYN-7 Assessment Billing - MADELYN-7 Assessment Tool: MADELYN-7 Assessment [id number] ([id number])
== END 2023-09-04 11:58 | disposition home or self-care (01) ==
PROVIDERS: PCP Internal Medicine; Visit Provider Internal Medicine
DX: M10.9 Gout, unspecified (principal); E78.5 Hyperlipidemia, unspecified; I10 Essential (primary) hypertension
CPT/HCPCS: 99214

== ENCOUNTER 2024-01-08 14:10 | Outpatient (AMB) | payer MEDICARE, OTHER, SELFPAY ==
--- NOTE | 2024-01-08 14:13 | MHC.PC.OV ---
Vital Signs 01/08/24 14:14 Height 5 ft 1 in Weight 120 lb 4 oz BMI 22.7 BP 120/72 Blood Pressure Location Lt brachial Position Sitting Pulse 75 Pulse Source Pulse Oximeter Pulse Oximetry (%) 99 Oxygen Delivery Method Room Air Intake Visit Reasons: 4 Month F/U Intake Note: Patient is here to follow up on HLD, HTN. Boiler/Chiller Technician Required: No Residential Green Building Designer: Not Required per policy Accompanied by: Self / Same As Patient Allergies allopurinol [ALLOPURINOL] Allergy (Intermediate, Verified 01/08/24 14:14) RASH Medication List - Last Reconciled 01/09/24 by Ralf Talavera MD aspirin (Adult Low Dose Aspirin) 81 mg PO DAILY lisinopril 10 mg PO DAILY metoprolol tartrate 25 mg PO BID multivitamin 1 tab PO DAILY probenecid 500 mg PO BID rosuvastatin 40 mg PO DAILY Tobacco use date assessed: 01/08/24 Fall risk assessment: No Falls in past year Last assessed Fall Risk: 01/08/24 Dental Screening Dental Screen Date: 09/04/23 HPI 4 Month F/U HPI Details HTN on Rx; doing well and compliant [facility] Medical History Gout Hypertension Surgical History History of cardiac catheterization H/O left wrist surgery Family History Father Heart disease Mother Heart disease Brother No problems noted. Sister No problems noted. Sister No problems noted. Son No problems noted. Son No problems noted. Social History Housing: House Alcohol intake: current Alcohol intake frequency: holidays/special occasions only Patient Tobacco Use Status: Former Tobacco user Tobacco use type: Cigarette e-Cigarette/Vaping Use: Never Used Second Hand Smoke Exposure: No service: No Current occupational status: retired Cognitive needs: No Hearing needs: No Vision needs: No Questionnaire Thrive Questionnaire Date Thrive assessed: 09/04/23 MADELYN-7 AMB Questionnaire MADELYN-7 Date MADELYN - 7 assessed: 09/04/23 Source: Developed by Drs. Leonel L. DonnieVictoria oliveira, Edwin Resendez and colleagues, with an educational neli from [employer]. Review of Systems Const Denies chills, Denies headache(s) and Denies weight loss ENT Denies headache(s) Card Denies chest pain, Denies syncope, Denies irregular heart rhythm and Denies dyspnea Resp Denies chest congestion, Denies cough and Denies dyspnea GI Denies abdominal pain, Denies change in stool character, Denies nausea and Denies vomiting Musc Denies deformity and Denies joint swelling Neuro Denies syncope and Denies headache(s) Physical exam (Primary Care) Vital Signs: Last Vital Signs Pulse 75 01/08/24 14:14 BP 120/72 01/08/24 14:14 Pulse Ox 99 01/08/24 14:14 Oxygen Delivery Method Room Air 01/08/24 14:14 BMI result Body Mass Index 22.7 Tobacco/Smoking Status: Tobacco use Status Tobacco use date assessed 01/08/24 01/08/24 14:18 Patient Tobacco Use Status Former Tobacco user 01/08/24 14:18 Tobacco use type Cigarette 01/08/24 14:18 e-Cigarette/Vaping Use Never Used 01/08/24 14:18 Thrive Assessment: Date of Thrive Assessment Date Thrive assessed 09/04/23 01/08/24 14:18 Const General: cooperative, comfortable, no acute distress and alert Neck Neck: Yes no lymphadenopathy Thyroid: Thyroid normal Resp Effort & Inspection: normal respiratory effort Auscultation: clear to auscultation bilaterally Percussion: percussion normal Cardio Jugular venous distension: no JVD Palpation: normal PMI Rate: regular rate Rhythm: regular rhythm Heart sounds: S1 normal heart sound present and S2 normal heart sound present GI Inspection: Yes normal to inspection Palpation (GI): No hepatosplenomegaly present Skin General skin exam: no rashes or lesions noted Extrem General: Yes no clubbing, cyanosis or edema Assessment and Plan Assessment & Plan (1) Hypertension: Code(s): I10 - Essential (primary) hypertension Plan: stable; same rx Orders: Orders Lipid Panel Today Z13.220 - Encounter for screening for lipoid disorders Complete Blood Count Auto Diff Today Z13.0 - Encounter for screening for diseases of the blood and blood-forming organs and certain disorders involving the immune mechanism Comprehensive [place]. Panel Fast Today Z13.9 - Encounter for screening, unspecified Coding Level of Care Code Est Pt Level 3 (11778) Diagnoses Hypertension I10
[2024-01-08 14:14] VITALS: BP 120/72; PULSE 75; O2SAT 99; BMI 22.7
== END 2024-01-08 14:25 | disposition home or self-care (01) ==
PROVIDERS: PCP Internal Medicine; Visit Provider Internal Medicine
DX: I10 Essential (primary) hypertension (principal)
CPT/HCPCS: 99213

== ENCOUNTER 2024-04-29 12:00 | Outpatient (REF) | payer MEDICARE, OTHER, SELFPAY ==
[2024-04-29 12:45] LABS: MANUAL DIFF FLAG NO
[2024-04-29 12:52] LABS: Basophils Percent Auto 0.4 % (0-2); Eosinophils Absolute Auto 0.1 X10*3/uL (0.0-0.4); Eosinophils Percent Auto 0.8 % (0-4); Hematocrit 32.4 % (37.0-47.0); Hemoglobin 11.2 g/dl (12.0-16.0); Imm Gran Abs Auto 0.03 X10*3/uL (0.00-0.03); Imm Gran Pct Auto 0.4 % (0.0-0.4); Lymphocytes Absolute Auto 2.1 X10*3/uL (1.2-4.9); Lymphocytes Percent Auto 26.4 % (20-40); Mean Corpuscular HGB Conc 34.6 g/dl (31.0-35.0); Mean Corpuscular Hemoglobin 34.1 pg (27.0-33.0); Mean Corpuscular Volume 98.8 fL (80.0-98.0); Mean Platelet Volume 9.5 fL (9.4-12.3); Monocytes Absolute Auto 0.7 X10*3/uL (0.1-1.2); Monocytes Percent Auto 8.4 % (2-11); Neutrophils Absolute Auto 5.1 x10*3/uL (2.0-8.3); Neutrophils Percent Auto 63.6 % (45-73); Platelet Count 223 X10*3/uL (160-400); Red Blood Count 3.28 X10*6/uL (4.20-5.50)
[2024-04-29 13:26] LABS: Alanine Aminotransferase 19 U/L (0-31); Alkaline Phosphatase 87 U/L (39-117); Anion Gap 16 (12-20); Aspartate Amino Transferase 46 U/L (5-31); Bilirubin Total 0.4 mg/dL (0.0-1.0); Blood Urea Nitrogen 15 mg/dL (9-16); Calcium 9.3 mg/dL (8.4-10.2); Carbon Dioxide 18 mmol/L (22-29); Chloride 106 mmol/L (96-108); Cholesterol 142 mg/dL (<200); Estimated Glomerular Filt Rate 53; Glucose Fasting 93 mg/dL (60-99); HDL Cholesterol 72 mg/dL (>40); LDL Cholesterol Calculated 49 mg/dL (<100); Potassium 4.2 mmol/L (3.3-5.1); Sodium 136 mmol/L (135-145); Total Protein 7.2 g/dL (6.5-8.0); Triglycerides 105 mg/dL (<150); Uric Acid 4.2 mg/dL (2.4-5.7)
== END 2024-04-29 12:01 | disposition home or self-care (01) ==
LOC: HO.LAB 12:00
PROVIDERS: PCP Internal Medicine; Visit Provider Internal Medicine
DX: Z13.0 Encounter for screening for diseases of the blood and blood-forming organs and certain disorders involving the immune mechanism (principal); E78.5 Hyperlipidemia, unspecified; Z13.9 Encounter for screening, unspecified; M10.9 Gout, unspecified
CPT/HCPCS: 36415; 80053; 80061; 84550; 85025

== ENCOUNTER 2024-05-13 11:41 | Outpatient (AMB) | payer MEDICARE, OTHER, SELFPAY ==
--- NOTE | 2024-05-13 11:42 | MHC.PC.OV ---
Vital Signs 05/13/24 11:43 Height 5 ft 1 in Weight 122 lb 0.8 oz BMI 23.1 BP 124/62 Blood Pressure Location Lt brachial Position Sitting Pulse 86 Pulse Source Pulse Oximeter Pulse Oximetry (%) 98 Oxygen Delivery Method Room Air Intake Visit Reasons: Rsched from 05/10 4 M Follow UP Allergies allopurinol [ALLOPURINOL] Allergy (Intermediate, Verified 05/13/24 11:46) RASH Tobacco use date assessed: 01/08/24 Fall risk assessment: No Falls in past year Last assessed Fall Risk: 05/13/24 Dental Screening Dental Screen Date: 09/04/23 HPI Rsched from 05/10 4 M Follow UP HPI Details HTN on Rx; doing well and compliant with meds [facility] Medical History Gout Hypertension Surgical History History of cardiac catheterization H/O left wrist surgery Family History Father Heart disease Mother Heart disease Brother No problems noted. Sister No problems noted. Sister No problems noted. Son No problems noted. Son No problems noted. Social History Housing: House Alcohol intake: current Alcohol intake frequency: holidays/special occasions only Patient Tobacco Use Status: Former Tobacco user Tobacco use type: Cigarette e-Cigarette/Vaping Use: Never Used Second Hand Smoke Exposure: No service: No Current occupational status: retired Cognitive needs: No Hearing needs: No Vision needs: No Questionnaire Thrive Questionnaire Date Thrive assessed: 09/04/23 AUDIT C Alcohol Use Questionnaire (AUDIT-C) 1. How often do you have a drink containing alcohol?: Monthly or less Total Score: 1 Score Reviewed/Action Taken: Yes MADELYN-7 AMB Questionnaire MADELYN-7 Date MADELYN - 7 assessed: 09/04/23 Source: Developed by Drs. Leonel Fields, Victoria Rodriguez, Edwin Resendez and colleagues, with an educational neli from [employer]. Review of Systems Const Denies chills, Denies headache(s) and Denies weight loss ENT Denies headache(s) Card Denies chest pain, Denies syncope, Denies irregular heart rhythm and Denies dyspnea Resp Denies chest congestion, Denies cough and Denies dyspnea GI Denies abdominal pain, Denies change in stool character, Denies nausea and Denies vomiting Musc Denies deformity and Denies joint swelling Neuro Denies syncope and Denies headache(s) Physical exam (Primary Care) Vital Signs: Last Vital Signs Pulse 86 05/13/24 11:43 BP 124/62 05/13/24 11:43 Pulse Ox 98 05/13/24 11:43 Oxygen Delivery Method Room Air 05/13/24 11:43 BMI result Body Mass Index 23.1 Tobacco/Smoking Status: Tobacco use Status Tobacco use date assessed 01/08/24 05/13/24 11:47 Patient Tobacco Use Status Former Tobacco user 05/13/24 11:47 Tobacco use type Cigarette 05/13/24 11:47 e-Cigarette/Vaping Use Never Used 05/13/24 11:47 Thrive Assessment: Date of Thrive Assessment Date Thrive assessed 09/04/23 05/13/24 11:47 Const General: cooperative, comfortable, no acute distress and alert Neck Neck: Yes no lymphadenopathy Thyroid: Thyroid normal Resp Effort & Inspection: normal respiratory effort Auscultation: clear to auscultation bilaterally Percussion: percussion normal Cardio Jugular venous distension: no JVD Palpation: normal PMI Rate: regular rate Rhythm: regular rhythm Heart sounds: S1 normal heart sound present and S2 normal heart sound present GI Inspection: Yes normal to inspection Palpation (GI): No hepatosplenomegaly present Skin General skin exam: no rashes or lesions noted Extrem General: Yes no clubbing, cyanosis or edema Office Procedures Flu Questionnaire Does the patient have a severe egg allergy?: No Does the patient have severe life threatening allergies?: No Does the patient have a fever or illness today?: No Has the patient ever had Guillain-[place] Syndrome?: No Has the patient ever had any past reaction to a flu shot?: No Immunizations Fluarix Triv [id number] (PF) 45 mcg (15 mcg x 3)/0.5 mL IM syringe Performing Provider: Ralf Talavera MD [place] [facility] [place] [facility] [place] [facility] Administered by: ELLIOT Davis on 05/13/24 12:12 Dose Route Admin Location Dispensed Lot Number Expiration Date NDC Bottle House Quality Control Technician 0.5 mL IM Left Deltoid 0.5 mL [id number] 12/20/24 [id number] [employer] VIS Given Date VIS Provided VIS Publication Date 05/13/24 Single Vaccine 21 Eligibility Eligibility Date Funding Source Not [facility] Eligible 05/13/24 Private Coding Level of Care Code Est Pt Level 3 (71102) Diagnoses Hypertension I10 Assessment & Plan Assessment & Plan (1) Hypertension: Code(s): I10 - Essential (primary) hypertension Category: Medical Plan: stable; same rx Orders: Orders Influenza [id number] Immunization Today Z23 - Encounter for immunization
[2024-05-13 11:43] VITALS: BP 124/62; PULSE 86; O2SAT 98; BMI 23.1
== END 2024-05-13 12:15 | disposition home or self-care (01) ==
PROVIDERS: PCP Internal Medicine; Visit Provider Internal Medicine
DX: I10 Essential (primary) hypertension (principal); Z23 Encounter for immunization

== ENCOUNTER → 2024-05-13 11:41 | Outpatient (BNVA) | payer MEDICARE, OTHER, SELFPAY | PROVIDERS: PCP Internal Medicine; Visit Provider Internal Medicine | DX: Z23 Encounter for immunization (principal); I10 Essential (primary) hypertension | CPT/HCPCS: 90471; 90656; 99212 ==

== ENCOUNTER 2024-08-30 13:28 | Outpatient (AMB) | payer MEDICARE, OTHER, SELFPAY ==
--- NOTE | 2024-08-30 13:30 | MHC.PC.OV ---
Vital Signs 08/30/24 13:33 Height 5 ft 1 in Weight 123 lb 4 oz BMI 23.3 BP 120/78 Blood Pressure Location Lt brachial Position Sitting Pulse 67 Pulse Source Pulse Oximeter Temp 96.9 F Temp Source Temporal Artery Scan Pulse Oximetry (%) 99 Oxygen Delivery Method Room Air Intake Visit Reasons: f/u DM Sulfide Head Operator Required: No Sample Sawyer: Not Required per policy Accompanied by: Self / Same As Patient Allergies allopurinol [ALLOPURINOL] Allergy (Intermediate, Verified 08/30/24 13:32) RASH Medication List - Last Reconciled 08/31/24 by Ralf Talavera MD aspirin (Adult Low Dose Aspirin) 81 mg PO DAILY lisinopril 10 mg PO DAILY metoprolol tartrate 25 mg PO BID multivitamin 1 tab PO DAILY probenecid 500 mg PO BID rosuvastatin 40 mg PO DAILY Tobacco use date assessed: 08/30/24 Fall risk assessment: No Falls in past year Last assessed Fall Risk: 08/30/24 Dental Screening Dental Screen Date: 08/30/24 Did you have a dental visit in the last 12 months?: Yes Did you have a dental problem in the last 6 months where you did not have access to dental care?: No Was dental information given to patient?: Patient has dentist HPI f/u DM HPI Details HTN and hyperlipidemia on rx; doing well and compliant [facility] Medical History Gout Hypertension Surgical History History of cardiac catheterization H/O left wrist surgery Family History Father Heart disease Mother Heart disease Brother No problems noted. Sister No problems noted. Sister No problems noted. Son No problems noted. Son No problems noted. Social History Housing: House Alcohol intake: current Alcohol intake frequency: holidays/special occasions only Patient Tobacco Use Status: Former Tobacco user Tobacco use type: Cigarette e-Cigarette/Vaping Use: Never Used Second Hand Smoke Exposure: Yes service: No Current occupational status: retired Cognitive needs: No Hearing needs: No Vision needs: No Questionnaire PHQ-9 Over the last 2 weeks, how often have you been bothered by any of the following problems? 1. Little interest or pleasure in doing things: not at all 2. Feeling down, depressed, or hopeless: not at all 3. Trouble falling or staying asleep, or sleeping too much: not at all 4. Feeling tired or having little energy: not at all 5. Poor appetite or overeating: not at all 6. Feeling bad about yourself - or that you are a failure or have let yourself or your family down: not at all 7. Trouble concentrating on things, such as reading the newspaper or watching television: not at all 8. Moving or speaking so slowly that other people could have noticed. Or the opposite - being so fidgety or restless that you have been moving around a lot more than usual: not at all 9. Thoughts that you would be better off or of hurting yourself in some way: not at all Total score: 0 Depression Screening Interpretation: Negative Depression Screening Done: Yes Source: Developed by Drs. Leonel Fields, Victoria Rodriguez, Edwin Resendez and colleagues, with an educational neli from [employer]. Thrive Questionnaire Date Thrive assessed: 08/30/24 I am a: Patient What is your living situation today?: I have a steady place to live Within the past 12 months, did the food you bought not last and you didn't have the money to get more?: Never true Within the past 12 months, did you worry whether your food would run out before you got money to buy more?: Never true Do you have trouble paying for medicines?: No Do you have trouble getting transportation to medical appointments?: No Do you have trouble paying your heating and electricity bill?: No Do you have trouble taking care of your child, family member or friend?: No Do you have trouble with day-to-day activities such as bathing, preparing meals, shopping, managing finances, etc.?: No Are you currently unemployed and looking for a job?: No Are you interested in more education?: No Please select the resources that you would like help with: None Currently or been in a relationship where the following occur: No concerns reported THRIVE Score: 0 AUDIT C Alcohol Use Questionnaire (AUDIT-C) 1. How often do you have a drink containing alcohol?: Monthly or less 2. How many drinks containing alcohol do you have on a typical day when you are drinking?: 1 or 2 Total Score: 1 MADELYN-7 AMB Questionnaire MADELYN-7 Date MADELYN - 7 assessed: 08/30/24 Feeling nervous, anxious, or on edge: 0 = Not at all Not being able to stop or control worryin = Not at all Worrying too much about different things: 0 = Not at all Trouble relaxin = Not at all Being so restless that it is hard to sit still: 0 = Not at all Becoming easily annoyed or irritable: 0 = Not at all Feeling afraid as if something awful might happen: 0 = Not at all Total MADELYN-7 score (0-4 normal; 5-9 mild; 10-14 moderate; 15-21 severe): 0 Source: Developed by Drs. Leonel Fields, Victoria Rodriguez, Edwin Resendez and colleagues, with an educational neli from [employer]. Review of Systems Const Denies chills, Denies headache(s) and Denies weight loss ENT Denies headache(s) Card Denies chest pain, Denies syncope, Denies irregular heart rhythm and Denies dyspnea Resp Denies chest congestion, Denies cough and Denies dyspnea GI Denies abdominal pain, Denies change in stool character, Denies nausea and Denies vomiting Musc Denies deformity and Denies joint swelling Neuro Denies syncope and Denies headache(s) Physical exam (Primary Care) Vital Signs: Last Vital Signs Temp 96.9 F 08/30/24 13:33 Pulse 67 08/30/24 13:33 BP 120/78 08/30/24 13:33 Pulse Ox 99 08/30/24 13:33 Oxygen Delivery Method Room Air 08/30/24 13:33 BMI result Body Mass Index 23.3 Tobacco/Smoking Status: Tobacco use Status Tobacco use date assessed 08/30/24 08/30/24 13:37 Patient Tobacco Use Status Former Tobacco user 08/30/24 13:32 Tobacco use type Cigarette 08/30/24 13:32 e-Cigarette/Vaping Use Never Used 08/30/24 13:32 PHQ-9: PHQ-9 Score PHQ-9: Total score 0 03/10/25 13:32 Depression Screening Interpretation: Negative Thrive Assessment: Date of Thrive Assessment Date Thrive assessed 08/30/24 08/30/24 13:32 Currently or been in a relationship where the following occur: No concerns reported Const General: cooperative, comfortable, no acute distress and alert Neck Neck: Yes no lymphadenopathy Thyroid: Thyroid normal Resp Effort & Inspection: normal respiratory effort Auscultation: clear to auscultation bilaterally Percussion: percussion normal Cardio Jugular venous distension: no JVD Palpation: normal PMI Rate: regular rate Rhythm: regular rhythm Heart sounds: S1 normal heart sound present and S2 normal heart sound present GI Inspection: Yes normal to inspection Palpation (GI): No hepatosplenomegaly present Skin General skin exam: no rashes or lesions noted Extrem General: Yes no clubbing, cyanosis or edema Coding Level of Care Code Est Pt Level 3 (61313) Diagnoses Hypertension I10 Assessment & Plan Assessment & Plan (1) Hypertension: Code(s): I10 - Essential (primary) hypertension Category: Medical Plan: stable; same rx
[2024-08-30 13:33] VITALS: BP 120/78; PULSE 67; TEMP 36.1; O2SAT 99; BMI 23.3
--- OUTSIDE RECORDS SUMMARY | 2024-08-30 15:13 | XMS_ITS ---
Author Organization [facility] Address [address] [place] [address] Care Team Providers Care Scholastic Aptitude Test Grader Name Role Phone Ralf Talavera MD Primary Care Provider Unavaila Rebecca Crook Unavailable [phone] Aaron Cha Unavailable [phone] Allergies Allergen (clinical drug ingredient) Drug/Non Drug [...] 05/14/2024 Encounters Encounter Location Date Provider Diagnosis [facility] [address] [place] [address] 05/14/2024 Aaron Cha Plan Of Treatment No Information Progress Notes * Sharla ANDRESDOB:1955 (69 yo F)Acc No.[id number]:05/14/2024 Progress Notes Patient:?Sharla ANDRES Provider:?Aaron Cha DPM :1955???Age:68 Y???Sex:Female D ate:05/14/2024 Address: [place] [facility] Pcp:Ralf Talavera MD Subjective: * Chief Complaints: * ???1. R/s for a sooner apt. * ROS:?General/Constitutional:?Nausea?denies.?Vomiting?denies.?Hunger Thirst?denies.?Loss appetite?denies.?Chills?denies.?Fatigue?denies.?Fever?denies.?Night Sweats?denies.?Unexplained weight loss?denies.?Unexplained weight gain?denies.?HEENTM:?Dentures?denies.?Dizziness?denies.?Glasses/contacts?admits.?Retinopathy?de nies.?Blurred/double vision?denies.?TMJ?denies.?Discharge/drainage?denies.?Implants?denies.?Sore throat?denies.?Dental implants?denies.?Hard of hearing ?denies.?Difficulty chewing/swallowing/speaking?denies.?Nose bleeds?denies.?Sore mouth?denies.?Respiratory:?On Oxygen?denies.?Pneumonia/pleurisy?denies.?Bronchitis?denies.?Emphysema?denies.?C oughing?denies.?Cough blood?denies.?Shortness of breath?denies.?Wheezing?denies.?Cardiovascular:?Pacemaker?denies.?MVP?denies.?WPW?denies.?CHF?denies.?Heart attack?denies.?Septal defect?denies.?Rapid beat?denies.?Chest pain ?denies.?Atrial Fib.?denies.?Murmur/Palpitations?denies.?Gastrointestinal:?Hemorrhoids?denies.?Stomach/Abdominal pain?denies.?Dark blood stool?denies.?Irritable bowel ?denies.?Constipation?denies.?Diarrhea?denies.?Hematology:?Swelling?denies.?Clots?denies.?Varicose Veins?denies.?Bruising?denies.?Bleeding problem?denies.?Genitourinary:?Blood urine?denies.?Frequent/Painfu/urination/bladder control?denies.?Kidney stones?denies.?Infection (UTI)?denies.?Nephropathy?denies.?sex trans dis (STD)?denies.?Prostate?denies.?Musculoskeletal:?Hammertoes?admits.?Bunions?denies.?Back Pain?admits.?Muscle Cramps/ Resting?denies.?Muscle cramps / walking?admits.?Generalized aches and pains?admits.?Weakness?denies.?Integ.:?Kirby?denies.?Scars?denies.?Corns/calluses?denies.?Ingrown nails?denies.?Painful nails?denies.?Open Sores?denies.?Rashes?denies.?Neurologic:?Difficulty sleeping?denies.?Brain disorder?denies.?Numbness?denies.?Balance trouble?denies.?Confusion?denies.?Fainting/blackouts?denies.?Tingling?denies.?Tr emors?denies.? * Medical History:?Arthritis, Back,Hip,and Knee pain, CAD (Cholesterol), Covid-19, Gout, Heart disease, High Blood Pressure, Osteoporosis, Reflux ( GERD), Measles, Mumps, Chicken pox. * Family History:?Mother: dece ased, diagnosed with Family history of arthritis, Unspecified essential hypertension, Other specified conditions influencing health status.?Father: , diagnosed with Unspecified essential hypertension, Unspecified heart disease.? * Social History:?Tobacco Use:?Tobacco Use/Smoking?Are you a:?former smoker ?Additional Findings: Tobacco Non-User?Current non-smoker ?Tobacco use other than smoking?Are you an other tobacco user??No ???Drugs/Alcohol:?Drugs?Have you used drugs other than those for medical reasons in the past 12 months??No ?Alcohol Screen?Did you have a drink containing alcohol in the past year??Yes ?Points?0 ?Interpretation?Negative ???Miscellaneous:?Caffeine: yes. ?Children: yes, 2. ?Exercise: no. ?Marital status: . * Medications:?Taking Lisinopr il , Taking Rosuvastatin Calcium , Taking Metoprolol Succinate , Taking Probenecid , Taking Rema Aspirin EC Low Dose , Taking Vitamin D3 * Allergies:?Allopurinol. Objective: * Vitals:?Ht: 5 ft 1 in, Wt:12 0, BMI:22.67, Shoe size: 6.5, Ht-cm: 154.94 cm, Wt- k.43 kg. Assessment: Plan: * Treatment: * Images: * The named appointment provid er may or may not be the originator of this progress note, and it is not deemed complete until electronically signed by the appointment provider. Sign off status: Pending * Provider:?Aaron Cha DPM Date:?2023 Generated for Spencer stark/Ric/Alexander on:?08/30/2024 03:12 PM EDT
--- OUTSIDE RECORDS SUMMARY | 2024-08-30 15:13 | XMS_ITS ---
Author Organization [facility] Address [address] [place] [address] Care Team Providers Care Outpatient Facility Physical Therapist Name Role Phone Ilan MCKEON, Ralf Primary Care Provider UnavailRebecca Marie [phone] Encounters Encounter Location Date Provider Diagnosis [address] [address] 05/14/2024 Rebecca Vang Plan Of Treatment No Information Progress Notes * Sharla ANRDESDOB:1955 (69 yo F)Acc No.[id number]:05/14/2024 Progress Notes Patient:?Sharla ANDRES Provider:?Rebecca Vang DPM :1955???Age:68 Y???Sex:Female D ate:05/14/2024 [place] Pcp:Ralf Talavera MD Subjective: * Chief Complaints: * ??? * Medical History:? Objective: * Vitals:? Assessment: Plan: * Treatment: * Images: * The named appointment provid er may or may not be the originator of this progress note, and it is not deemed complete until electronically signed by the appointment provider. Sign off status: Pending * Provider:?Rebecca Vang DPM Date:? Generated for Issai mi/Ric/eTransmitting on:?08/30/2024 03:13 PM EDT
--- OUTSIDE RECORDS SUMMARY | 2024-08-30 15:13 | XMS_ITS ---
Author Organization [facility] Address [address] [place] [address] Care Team Providers Care Facialist Name Role Phone Ralf Talavera MD Primary Care Provider Unavaila Rebecca Crook Unavailable [phone] REASON FOR VISIT cx appt 05/14/24 Encounters Encounter Location Date Provider Diagnosis [facility] [address] [place] [address] 05/12/2024 Rebecca Vang Plan Of Treatment No Information Progress Notes * Sharla ANDRESDOB:1955 (68 yo F)Acc No.[id number]:05/12/2024 Patient:?Sharla ANDRES :1955???Age:68 Y???Sex:Female Address: [place] [address] * true * Date:? Generated for Printi ng/Fahowardg/eTransmitting on:?08/30/2024 03:13 PM EDT
--- OUTSIDE RECORDS SUMMARY | 2024-08-30 15:13 | XMS_ITS | Patient Health Record ---
[facility] Address [address] [facility] [place] [address] Care Team Providers Care Motor Operator Name Role Phone Ilan MCKEON, Ralf Primary Care Provider Unavaila Rebecca Crook Unavailable [phone] Aaron Cha Unavailable [phone] Allergies Allergen (clinical drug ingredient) Drug/Non Drug Allergy documented on EMR Reaction Allergy Type Onset Date Status allopurinol Allopurinol Unknown Drug Allergy Act wilfredo Reason For Referral No Information Medications Medication SIG (Take, Route, Frequency, Duration) Notes Start Date End Date Status Lisinopril Active Rema Aspirin EC Low Dose Active Probenecid Active Metoprolol Succinate Active Rosuvastatin Calcium Active Medrol luis 4mg as directed orally a s directed for 6 days 04/07/2024 Active Metoprolol Tartrate 25 MG TAKE 1 TABLET BY MOUTH TWICE A DAY Oral for 90 Days Active ASO Ankle/Foot Stablizing AFO As directed Wear Daily for as needed 04/07/2024 Active Probenecid 500 MG TAKE 1 TABLET BY CANDIDO TH TWICE A DAY Oral for 90 Days Active Rosuvastatin Calcium 40 MG Oral for 90 Days Active Rema Aspirin EC Low Dose Active Lisinopril 10 MG Oral for 90 Days Active Vitamin D3 Active Vitamin D3 Active Social History Tobacco Use: Social History [...] Are you an other tobacco user? 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) Active confirmed Problem Localized, primary osteoarthritis of the ankle and/or foot (670854060) Osteoarthritis of left ankle or foot (M19.072) Active confirmed Problem Osteoarthritis of midtarsal joint of left foot (9125490664118021 ) Osteoarthritis of midtarsal joint of left foot (M19.072) Active confirmed Vital Signs Blood pressure diastolic 81 mm Hg 04/07/2024 Height 5 ft 1 in in 04/07/2024 Blood pressure systolic 120 mm Hg 04/07/2024 Weight 120 lbs 04/07/2024 BMI 22.67 kg/m2 04/07/2024 Encounters Encounter Location Date Provider Diagnosis [address] [address] 04/07/2024 Rebecca Vang Osteoarthritis of le ft ankle or foot M19.072 ; Pain in left foot M79.672 ; Arthralgia of left ankle M25.572 ; Pain in left ankle and joints of left foot M25.572 ; Bursitis of left foot M77.52 ; Plantar fascial fibromatosis M72.2 and Sprain of left foot, initial encounter S93.602A [facility] [address] 02/26/2024 Aaron [facility] [address] 04/06/2024 Rebecca Vang [address] [address] 05/12/2024 Rebecca Vang Assessments Encounter Date Diagnosis (ICD Code) Assessment Notes Treatment Notes Treatment Clinical Notes Section Notes 04/07/2024 Pain in left foot (ICD-10 - M79.672) 04/07/2024 Osteoarthritis of left ankle or foot (ICD-10 - M19.072) 04/07/2024 Arthralgia of left ankle (ICD-10 - M25.572) 04/07/2024 Pain in left ankle and joints of left foot (ICD-10 - M25.572) 04/07/2024 Bursitis of left foot (ICD-10 - M77.52) 04/07/2024 Plantar fascial fibromatosis (ICD-10 - M72.2) 04/07/2024 Sprain of left foot, initial encounter (ICD-10 - S93.602A) Plan Of Treatment Pending Test Test Name Order Date X ray : Ankle, left 3V 04/07/2024 X ray : Foot, left 3V 04/07/2024 Insurance Providers Payer Name Payer Address Payer Phone Subscriber Number Group Number Insured Name Patient Relationship to Insured Coverage Start Date Coverage End Date Medicare National [employer] [address] [place] [address] [id number] Sharla Andres Self - patient is the insured [employer] ([facility]) [address] [place] [address] [id number] Sharla Andres Self - patient is the insured Medical (General) History Medical History History ICD Code Arthritis Back,Hip,and Knee pain CAD (Cholesterol) covid-19 Gout Heart disease High Blood Pressure Osteoporosis Reflux ( GERD) Measles Mumps Chicken pox
--- OUTSIDE RECORDS SUMMARY | 2024-08-30 15:14 | XMS_ITS | Continuity of Care Document ---
Author Organization [facility] Address [address] [place] [phone] Care Team Providers Care Turn Sewer Name Role Phone Ilan MCKEON, Ralf Gerardo Primary Care Physician Encounter [facility] Date(s): 06/30/24 - 07/30/24 [facility] [address] [place] [phone] Encounter Type: Triage Allergies, Adverse Reactions, Alerts Substance Criticality Severity Reaction Reaction Severity Status allopurinol Active Immunizations Given and Recorded Vaccine Date Status Refusal Reason influenza virus vaccine, inactivated 04/07/23 Timur rded influenza virus vaccine, inactivated 03/27/20 Timur rded Medications Aspirin Low Strength = 81 mg, By Mouth, Daily, 0 Refills, 12/04/07 3:36:11 PM EDT Start Date: 12/04/07 Status: Ordered Repeat number: 1 calcium (as carbonate)-vitamin D 500 mg-100 intl units oral tablet, chewable 2 tablet, Daily, 0 Refills, Maintenance, 04/02/18 9:36:36 AM EDT Start Date: 04/02/18 Status: Ordered Repeat number: 1 clopidogrel 75 mg oral tablet 75 mg, By Mouth, Daily, # 90 tablet, Refills 1, Tot. Refills 1, Maintenance, 05/14/19 4:13:02 PM EST, Route to Pharmacy Electronically, [facility]/pharmacy #[id number] Start Date: 05/14/19 Stop Date: 11/10/19 Status: Ordered Quantity: 90.0 Unit: tablet Repeat number: 2 lisinopril 10 mg oral tablet See Instructions, TAKE 1 TABLET BY MOUTH EVERY DAY, # 90 tablet, Refills 2, Maintenance, 06/30/24 8:34:00 AM EST, Instructions Replace Required Details, Route to Pharmacy Electronically, [id number], 154, cm, 11/13/23 15:12:00 EDT, Height Start Date: 06/30/24 Status: Ordered Quantity: 90.0 Unit: tablet Repeat number: 1 Metoprolol Tartrate 25 mg oral tablet See Instructions, TAKE 1 TABLET BY MOUTH TWICE A DAY, # 180 tablet, 1 Refills, Maintenance, 06/30/24 8:34:00 AM EST, [id number], 154, cm, 11/13/23 15:12:00 EDT, Height Start Date: 06/30/24 Status: Ordered Quantity: 180.0 Unit: tablet Repeat number: 1 probenecid 500 mg oral tablet 500 mg, 1, tablet, By Mouth, Daily, Refills 0, Maintenance, 04/22/18 7:02:35 AM EDT Start Date: 04/22/18 Status: Ordered Repeat number: 1 rosuvastatin 40 mg oral tablet See Instructions, TAKE 1 TABLET BY MOUTH EVERY DAY, # 90 tablet, 3 Refills, Maintenance, 04/22/24 7:30:00 AM EDT, [id number], 154, cm, 11/13/23 15:12:00 EDT, Height Start Date: 04/22/24 Status: Ordered Quantity: 90.0 Unit: tablet Repeat number: 1 Vitamin D3 2000 intl units oral capsule 1 capsule = 50 mcg, By Mouth, Daily, # 60 capsule, 0 Refills, Maintenance, 11/13/23 3:11:00 PM EDT, Capsule, Partial fill upon patient request if the prescription is for a schedule II opioid drug. Start Date: 11/13/23 Status: Ordered Quantity: 60.0 Unit: capsule Repeat number: 1 Social History Social History Type Response Smoking Status Former smoker entered on: 04/02/18 Sex Sex Representation Female (finding) Patient Care team information Care Team Personnel Name: Ilan MCKEON, Ralf Gerardo Position: Reference Physician Member Role: PCP Address: [address] [place] [address] Telecom: Name: Vannesa Mercado RN Position: [facility] AMB Nurse Member Role: Primary Care Nurse Name: Daron Roberto RN Position: [facility] ED RN W/OE and Tasks Member Role: Primary Care Nurse Care Team Related Persons Name: DONG GONZALEZ Name: LUISA STANFORD Insurance Providers Guarantor name: SRINATH STANFORD Health Plan Information #: 1 Payer: MEDICARE PART B OUTPT Member Number: NA Policy Number: NA Group Number: NA Health Plan Information #: 2 Payer: [facility]DN Member Number: NA Policy Number: NA Group Number: NA
== END 2024-08-30 13:54 | disposition home or self-care (01) ==
PROVIDERS: PCP Internal Medicine; Visit Provider Internal Medicine
DX: I10 Essential (primary) hypertension (principal)

== ENCOUNTER → 2024-08-30 13:28 | Outpatient (BNVA) | payer MEDICARE, OTHER, SELFPAY | PROVIDERS: PCP Internal Medicine; Visit Provider Internal Medicine | DX: I10 Essential (primary) hypertension (principal) | CPT/HCPCS: 99212 ==

== ENCOUNTER 2024-12-23 14:27 | Outpatient (AMB) | payer MEDICARE, OTHER, SELFPAY ==
--- OUTSIDE RECORDS SUMMARY | 2024-05-14 07:30 | XMS_ITS ---
Author Organization [facility] Address [address] [place] [address] Care Team Providers Care Section Hand Name Role Phone Ralf Talavera MD Primary Care Provider Unavaila Rebecca Crook Unavailable [phone] Aaron Cha Unavailable [phone] Allergies Allergen (clinical drug ingredient) Drug/Non Drug [...] 05/14/2024 Encounters Encounter Location Date Provider Diagnosis [facility] [address] [place] [address] 05/14/2024 Aaron Cha Plan Of Treatment No Information Progress Notes * Sharla ANDRES JDOB:1955 (69 yo F)Acc No.[id number]:05/14/2024 Progress Notes Patient: Sharla LINARES Provider: Lynnette Cha DPM :1955 A ge:68 Y S ex:Female Date:05/14/2024 Address:[address] [place] [address] [facility] Pcp:Ralf Talavera MD Subjective: * Chief Complaints: [...] enies. C ardiovascular: Pacemaker d enies. M COURSEWARE DEVELOPER d enies. W PW d enies. C [...] Date: 07/14/2023 Generated for Spencer stark/Ric/Alexander on: 0 12/23/2024 02:30 PM EDT
--- NOTE | 2024-12-23 14:29 | MHC.PC.OV ---
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 Customer Service Representative Teacher Required: No Accompanied by: Self / Same As Patient Allergies allopurinol (ALLOPURINOL) Allergy (Intermediate, Verified 12/23/24 15:27) RASH Medication List - Last Reconciled 12/23/24 by Delilah Day PA-C aspirin (Adult Low Dose Aspirin) 81 mg PO DAILY lisinopril 10 mg PO DAILY metoprolol tartrate 25 mg PO BID multivitamin 1 tab PO DAILY probenecid 500 mg PO BID rosuvastatin 40 mg PO DAILY Tobacco use date assessed: 08/30/24 Fall risk assessment: No Falls in past year Last assessed Fall Risk: 12/23/24 Dental Screening Dental Screen Date: 12/23/24 Did you have a dental visit in the last 12 months?: Yes Did you have a dental problem in the last 6 months where you did not have access to dental care?: No Was dental information given to patient?: Patient has dentist HPI establish care/Transfer from Dr. Talavera HPI Details The patient is a 69-year-old female presenting for a new patient appointment and management of chronic conditions. Her prior primary care was Dr. Talavera at [facility] who has retired. The patient has a history of coronary artery disease, with the first major coronary artery event occurring approximately 15-16 years ago, requiring stent placement. A second event involving the pulmonary artery occurred about six years ago, also requiring stent placement. She is currently managed by a school cafeteria cook head at [facility] and takes baby aspirin as part of her treatment regimen. The patient reports a history of anemia, with recent lab results showing hemoglobin at 12.0 g/dL and hematocrit at 37%, which are slightly below normal. She is not currently on iron supplements, as her levels are not critically low, but further evaluation is planned to rule out hereditary anemia. Hypertension is noted, with current medication including lisinopril and metoprolol. Blood pressure readings have shown some variability, with a recent reading of 142/74 mmHg, which is an improvement from earlier measurements. The patient has a history of hyperlipidemia, managed with atorvastatin. Recent lipid panel results show triglycerides at 105 mg/dL, total cholesterol at 142 mg/dL, LDL at 49 mg/dL, and HDL at 72 mg/dL, indicating good control. The patient experiences gout, primarily affecting her ankle, and uses probenecid as needed for management. Dietary triggers such as red meat and beer are noted, and she is advised to monitor these. Preventative care measures discussed include scheduling a mammogram and a bone density scan to assess for osteoporosis. Social History - Family: , from liver cancer. - Family History: Father of congestive heart failure; family history of sudden in male relatives. 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 - Exercise: No specific exercise routine mentioned. - Diet: Occasionally consumes red meat and beer, which may trigger gout. [facility] Medical History Preventative health care Establishing care with new doctor, encounter for Anemia CAD (coronary atherosclerotic disease) Gout Hypertension Surgical History History of cardiac catheterization H/O left wrist surgery Family History Father Heart disease Parkinson disease Mother Heart disease Arthritis, rheumatoid Parkinson disease Dementia Brother No problems noted. Sister No problems noted. Sister No problems noted. Son No problems noted. Son No problems noted. Social History Housing: House Alcohol intake: current Alcohol intake frequency: holidays/special occasions only Alcohol type: beer and other Patient Tobacco Use Status: Former Tobacco user Tobacco use type: Cigarette e-Cigarette/Vaping Use: Never Used Second Hand Smoke Exposure: Yes service: No Current occupational status: retired Cognitive needs: No Hearing needs: No Vision needs: Yes (rx glasses) Questionnaire PHQ-9 Over the last 2 weeks, how often have you been bothered by any of the following problems? 1. Little interest or pleasure in doing things: not at all 2. Feeling down, depressed, or hopeless: not at all 3. Trouble falling or staying asleep, or sleeping too much: not at all 4. Feeling tired or having little energy: not at all 5. Poor appetite or overeating: not at all 6. Feeling bad about yourself - or that you are a failure or have let yourself or your family down: not at all 7. Trouble concentrating on things, such as reading the newspaper or watching television: not at all 8. Moving or speaking so slowly that other people could have noticed. Or the opposite - being so fidgety or restless that you have been moving around a lot more than usual: not at all 9. Thoughts that you would be better off or of hurting yourself in some way: not at all Total score: 0 Depression Screening Interpretation: Negative Depression Screening Done: Yes 16720 - PHQ-9 Billing: Yes Source: Developed by Drs. Leonel Fields, Victoria Rodriguez, Edwin Resendez and colleagues, with an educational neli from [employer]. Thrive Questionnaire Date Thrive assessed: 08/30/24 I am a: Patient What is your living situation today?: I have a steady place to live Within the past 12 months, did the food you bought not last and you didn't have the money to get more?: Never true Within the past 12 months, did you worry whether your food would run out before you got money to buy more?: Never true Do you have trouble paying for medicines?: No Do you have trouble getting transportation to medical appointments?: No Do you have trouble paying your heating and electricity bill?: No Do you have trouble taking care of your child, family member or friend?: No Do you have trouble with day-to-day activities such as bathing, preparing meals, shopping, managing finances, etc.?: No Are you currently unemployed and looking for a job?: No Are you interested in more education?: No Please select the resources that you would like help with: None Currently or been in a relationship where the following occur: No concerns reported THRIVE Score: 0 AUDIT C Alcohol Use Questionnaire (AUDIT-C) 1. How often do you have a drink containing alcohol?: Monthly or less 2. How many drinks containing alcohol do you have on a typical day when you are drinking?: 1 or 2 3. How often do you have six or more drinks on one occasion?: Never Total Score: 1 Score Reviewed/Action Taken: No MADELYN-7 AMB Questionnaire MADELYN-7 Date MADELYN - 7 assessed: 12/23/24 Feeling nervous, anxious, or on edge: 0 = Not at all Not being able to stop or control worryin = Not at all Worrying too much about different things: 0 = Not at all Trouble relaxin = Not at all Being so restless that it is hard to sit still: 0 = Not at all Becoming easily annoyed or irritable: 0 = Not at all Feeling afraid as if something awful might happen: 0 = Not at all Total MADELYN-7 score (0-4 normal; 5-9 mild; 10-14 moderate; 15-21 severe): 0 Source: Developed by Drs. Leonel Fields, Victoria Rodriguez, Edwin Resendez and colleagues, with an educational neli from [employer]. MADELYN-7 Assessment Billing MADELYN-7 Assessment Tool: MADELYN-7 Assessment 36918 Review of Systems Const Details: - Cardiovascular: Reports history of coronary artery disease, denies current chest pain or palpitations. - Hematologic: Reports history of anemia, denies fatigue or weakness. - Musculoskeletal: Reports gout affecting the ankle, denies other joint pain. - Endocrine: Denies symptoms of thyroid dysfunction. Physical exam (Primary Care) Vital Signs: Last Vital Signs Temp 97.3 F 12/23/24 14:35 Pulse 62 12/23/24 14:35 Resp 16 12/23/24 14:35 BP 162/82 H 12/23/24 14:35 Pulse Ox 99 12/23/24 14:35 Oxygen Delivery Method Room Air 12/23/24 14:35 Care Plan Goal for BP management: <140/90 patient to continue monitor her blood pressure at home if continues to stay over 140/90 she is to call her school cafeteria cook head or contact us for a follow-up BMI result Body Mass Index 23.5 Normal BMI Tobacco/Smoking Status: Tobacco use Status Tobacco use date assessed 08/30/24 12/23/24 14:34 Patient Tobacco Use Status Former Tobacco user 12/23/24 14:46 Tobacco use type Cigarette 12/23/24 14:46 e-Cigarette/Vaping Use Never Used 12/23/24 14:46 PHQ-9: PHQ-9 Score PHQ-9: Total score 0 12/23/24 14:34 Depression Screening Interpretation: Negative Thrive Assessment: Date of Thrive Assessment Date Thrive assessed 08/30/24 12/23/24 14:34 Currently or been in a relationship where the following occur: No concerns reported Const Other: Appearance: Alert. Oriented X3. No acute distress. Head: Normal external exam. Normocephalic. Atraumatic. Eyes: Pupils are equal, round, and reactive to light. Extraocular movements intact. Conjunctiva and sclera normal. Eyelids normal. Throat: Pharynx normal. Uvula midline. Moist mucous membranes. Neck: Normal inspection. Neck supple. Full range of motion. Cardiovascular: Normal heart rate and rhythm. Heart sound normal. No murmurs noted. Pulses normal throughout. Respiratory: No respiratory distress. Painless inspiration. Breath sounds normal. No wheezes/rales/rhonchi noted. Chest nontender. No accessory muscle usage noted or decreased air movement noted. Abdomen: Soft and nontender. Back: Full range of motion noted. Skin: Skin warm and dry. Normal skin color. Normal skin turgor. No rashes/lesions/lacerations noted. Extremities: Extremities exhibit normal range of motion. Neuro: Oriented X 3. No motor deficit. No sensory deficit. Reflexes normal. Results Reviewed Results Reviewed: - Labs: Hemoglobin 12.0 g/dL, Hematocrit 37%, Triglycerides 105 mg/dL, Total Cholesterol 142 mg/dL, LDL 49 mg/dL, HDL 72 mg/dL. Coding Level of Care Code Est Pt Level 5 (09572) Complex EM visit Add On G2211 Diagnoses Establishing care with new doctor, encounter for Z. CAD (coronary atherosclerotic disease) I25.10 Anemia D64.9 Hypertension I10 Hyperlipidemia E78.5 Gout M10.9 Preventative health care Z00.00 Additional Codes PHQ-9 - 07767 - PHQ-9 Billing: Yes ([id number]) MADELYN-7 Assessment Billing - MADELYN-7 Assessment Tool: MADELYN-7 Assessment 17631 ([id number]) Time Spent (min) 60 Assessment & Plan Assessment & Plan (1) Establishing care with new doctor, encounter for: Code(s): Z76.89 - Persons encountering health services in other specified circumstances Category: Medical (2) CAD (coronary atherosclerotic disease): Comment: s/p angiogram then cardiac catheterization the 2nd time. Dr. López at [facility] for school cafeteria cook head and prescribing her her medications. Code(s): I25.10 - Atherosclerotic heart disease of [place] coronary artery without angina pectoris Category: Medical Plan: The patient will continue management with her school cafeteria cook head at [facility], including the use of baby aspirin as part of her treatment regimen. Regular follow-up appointments with the school cafeteria cook head are recommended to monitor her condition and adjust treatment as necessary. Condition is chronic and stable continue to monitor. (3) Anemia: Code(s): D64.9 - Anemia, unspecified Category: Medical Plan: Further evaluation of anemia is planned, including checking for hereditary causes and assessing the need for iron supplementation. The patient will undergo additional blood tests to monitor her hemoglobin and hematocrit levels. Condition is chronic and stable continue to monitor. (4) Hypertension: Code(s): I10 - Essential (primary) hypertension Category: Medical Plan: The patient is advised to continue her current antihypertensive medications, lisinopril and metoprolol. Blood pressure will be monitored regularly, and adjustments to medication will be made based on future readings. Condition is chronic and stable continue to monitor. (5) Hyperlipidemia: Code(s): E78.5 - Hyperlipidemia, unspecified Category: Medical Plan: The patient will continue atorvastatin for hyperlipidemia management. Lipid levels will be monitored periodically to ensure continued control. Condition is chronic and stable continue to monitor. (6) Gout: Code(s): M10.9 - Gout, unspecified Category: Medical Plan: The patient will continue using probenecid as needed for gout management. Dietary modifications to reduce red meat and beer consumption are recommended to prevent flare-ups. Condition is chronic and stable continue to monitor. (7) Preventative health care: Code(s): Z00.00 - Encounter for general adult medical examination without abnormal findings Category: Medical Plan: The patient is advised to schedule a mammogram and a bone density scan to assess for osteoporosis. These screenings are part of routine preventative care to monitor her overall health status. Plan Plan Patient was informed and verbally consented to the use of an ambient scribe for clinic note documentation during this visit. 1. Coronary Artery Disease The patient will continue management with her school cafeteria cook head at [facility], including the use of baby aspirin as part of her treatment regimen. Regular follow-up appointments with the school cafeteria cook head are recommended to monitor her condition and adjust treatment as necessary. 2. Anemia Further evaluation of anemia is planned, including checking for hereditary causes and assessing the need for iron supplementation. The patient will undergo additional blood tests to monitor her hemoglobin and hematocrit levels. 3. Hypertension The patient is advised to continue her current antihypertensive medications, lisinopril and metoprolol. Blood pressure will be monitored regularly, and adjustments to medication will be made based on future readings. 4. Hyperlipidemia The patient will continue atorvastatin for hyperlipidemia management. Lipid levels will be monitored periodically to ensure continued control. 5. Gout The patient will continue using probenecid as needed for gout management. Dietary modifications to reduce red meat and beer consumption are recommended to prevent flare-ups. 6. Preventative Care The patient is advised to schedule a mammogram and a bone density scan to assess for osteoporosis. These screenings are part of routine preventative care to monitor her overall health status. During the visit, we discussed the management of the patient's coronary artery disease, including the continuation of baby aspirin and regular cardiology follow-ups. We also reviewed her anemia, with plans for further evaluation to determine if iron supplementation is necessary. Hypertension management was addressed, with a recommendation to continue current medications and monitor blood pressure regularly. For hyperlipidemia, the patient will continue atorvastatin, and lipid levels will be monitored. Gout management includes the use of probenecid and dietary modifications to prevent flare-ups. Preventative care measures, including scheduling a mammogram and bone density scan, were emphasized to ensure comprehensive health monitoring. 60 minutes were spent on this visit which includes encountering including history, physical, coordination of care, counseling and documentation. Orders: Orders C Reactive Protein Today Z00.00 - Encounter for general adult medical examination without abnormal findings Comprehensive [place]. Panel Fast Today Z00.00 - Encounter for general adult medical examination without abnormal findings Ferritin Today D64.9 - Anemia, unspecified Hemoglobin A1c Today Z00.00 - Encounter for general adult medical examination without abnormal findings Vitamin B12 and Folate Today Z00.00 - Encounter for general adult medical examination without abnormal findings TSH reflex Free T4 Today Z00.00 - Encounter for general adult medical examination without abnormal findings MM screening mammo BI Today Z12.31 - Encounter for screening mammogram for malignant neoplasm of breast Complete Blood Count Auto Diff Today Z00.00 - Encounter for general adult medical examination without abnormal findings Lipid Panel Today Z00.00 - Encounter for general adult medical examination without abnormal findings Liver Panel Today Z00.00 - Encounter for general adult medical examination without abnormal findings Magnesium Today Z00.00 - Encounter for general adult medical examination without abnormal findings Vitamin D 25-OH Total Today Z00.00 - Encounter for general adult medical examination without abnormal findings XR DEXA axial skeleton Today M81.0 - Age-related osteoporosis without current pathological fracture Medications: New aspirin (Adult Low Dose Aspirin) 81 mg PO DAILY 90 tabs 1RF Patient Instructions: - Continue taking prescribed medications: baby aspirin, lisinopril, metoprolol, atorvastatin, and probenecid as needed. - Monitor blood pressure regularly and report any significant changes. - Schedule and complete a mammogram and bone density scan. - Follow dietary recommendations to reduce red meat and beer consumption to manage gout. - Attend regular follow-up appointments with your school cafeteria cook head and primary care provider.
[2024-12-23 14:35] VITALS: BP 142/74; PULSE 62; RESP 16; TEMP 36.3; O2SAT 99; BMI 23.5
== END 2024-12-23 15:24 | disposition home or self-care (01) ==
LOC: HO.HMCSH 14:27
PROVIDERS: PCP Physician Assistant Medical; Visit Provider Physician Assistant Medical
DX: I25.10 Atherosclerotic heart disease of native coronary artery without angina pectoris (principal); D64.9 Anemia, unspecified; I10 Essential (primary) hypertension; E78.5 Hyperlipidemia, unspecified; M10.9 Gout, unspecified; Z76.89 Persons encountering health services in other specified circumstances

== ENCOUNTER → 2024-12-23 14:27 | Outpatient (BNVA) | payer MEDICARE, OTHER, SELFPAY | PROVIDERS: PCP Physician Assistant Medical; Visit Provider Physician Assistant Medical | DX: Z00.00 Encounter for general adult medical examination without abnormal findings (principal); Z86.79 Personal history of other diseases of the circulatory system; I25.10 Atherosclerotic heart disease of native coronary artery without angina pectoris; D64.9 Anemia, unspecified; E78.5 Hyperlipidemia, unspecified; I10 Essential (primary) hypertension; M10.9 Gout, unspecified; Z87.891 Personal history of nicotine dependence | CPT/HCPCS: 96127; 99212 ==

== ENCOUNTER 2025-03-11 13:33 | Outpatient (REF) | payer MEDICARE, OTHER, SELFPAY ==
--- NOTE | ~2025-03-11 | MM_ITS ---
EXAMINATION: DXA BONE DENSITY AXIAL HISTORY: M81.0 - Age-related osteoporosis without current pathological fracture TECHNIQUE: [employer] Dual energy absorptiometry (DEXA) of the lumbar spine, total left hip, and femoral neck was performed. COMPARISON: Comparison is made with the prior examination dated 10/31/2016. FINDINGS: The bone mineral density of the lumbar spine is 0.939 g/cm2, corresponding to a T-score of -2.0, and a Z-score of -0.1. This is indicative of osteopenia. This represents a BMD change of 2.2% compared to the prior exam. This is not statistically significant. The bone mineral density of the left total hip is 0.614 g/cm2, corresponding to a T-score of -3.1, and a Z-score of -1.5. This is indicative of osteoporosis. This represents a BMD change of -5.8% compared to the prior exam. This is statistically significant. The bone mineral density of the left femoral neck is 0.64 g/cm2, corresponding to a T-score of -3.1, and a Z-score of -1.3. This is indicative of osteoporosis. This represents a BMD change of 1.2% compared to the prior exam. FRACTURE RISK: The FRAX index suggests a ten year probability of major osteoporotic fracture of 44.5%, and of hip fracture 17.2%. MM/XR DEXA axial skeleton IMPRESSION: Based on bone mineral density, and according to World Health Organization (WHO) criteria, the diagnosis is consistent with osteoporosis. Statistically, 68% of repeat scans fall within 1 SD (+/- 0.010 g/cm2 for AP spine L1-L4) and 1 SD (+/- 0.012 g/cm2 for femur total) FRAX is a trademark of the [employer]'s [place] Metabolic Bone Disease, a World Health Organization (WHO) Collaborating Center. Electronically signed by: Leonel Flores MD 03/11/2025 02:18 PM EDT
== END 2025-03-11 13:34 | disposition home or self-care (01) ==
LOC: HO.MAMMO 13:33
PROVIDERS: PCP Physician Assistant Medical; Visit Provider Physician Assistant Medical
DX: Z12.31 Encounter for screening mammogram for malignant neoplasm of breast (principal); M81.0 Age-related osteoporosis without current pathological fracture
CPT/HCPCS: 77063; 77067; 77080

== ENCOUNTER → 2025-03-11 14:00 | Outpatient (BNV) | payer MEDICARE, OTHER, SELFPAY | PROVIDERS: PCP Physician Assistant Medical; Visit Provider Radiology Diagnostic Radiology | DX: E28.39 Other primary ovarian failure (principal) | CPT/HCPCS: 77080 ==

== ENCOUNTER 2025-06-21 11:09 | Outpatient (REF) | payer MEDICARE, OTHER, SELFPAY ==
--- OUTSIDE RECORDS SUMMARY | 2024-05-14 06:30 | XMS_ITS ---
Author Organization [facility] Address [address] [place] [address] Care Team Providers Care Pediatric Neuropsychologist Name Role Phone Ralf Talavera MD Primary Care Provider Unavaila Rebecca Crook Unavailable [phone] Aaron Cha Unavailable [phone] Allergies Allergen (clinical drug ingredient) Drug/Non Drug Allergy documented on EMR Reaction Allergy Type Onset Date Status allopurinol Allopurinol Unknown Drug Allergy Act wilfredo REASON FOR VISIT r/s for a sooner apt Medications Medication SIG (Take, Route, Frequency, Duration) Notes Start Date End Date Status Rema Aspirin EC Low Dose Active Probenecid Active Metoprolol Succinate Active Rosuvastatin Calcium Active Vitamin D3 Active Lisinopril Active Social History Tobacco Use: Social History Observation Description Date Details (start date - stop date) Former Smoker NA - NA Tobacco Use/Smoking Question Answer Notes Are you a: former smoker Additional Findings: Tobacco Non-User Current no n-smoker Alcohol Screen Question Answer Notes Did you have a drink containing alcohol in the p ast year? Yes Points 0 Interpretation Negative Tobacco use other than smoking: Question Answer Notes Are you an other tobacco user? No Vital Signs Height 5 ft 1 in in 05/14/2024 Weight 120 lbs 05/14/2024 BMI 22.67 kg/m2 05/14/2024 Encounters Encounter Location Date Provider Diagnosis [facility] [address] [place] [address] 05/14/2024 Aaron Cha Plan Of Treatment No Information Progress Notes * Sharla ANDRES JDOB:1955 (69 yo F)Acc No.[id number]:05/14/2024 Progress Notes Patient: Sharla LINARES Provider: Lynnette Cha DPM :1955 A ge:68 Y S ex:Female Date:05/14/2024 Address:[address] [place] [address] [facility] Pcp:Ralf Talavera MD Subjective: * Chief Complaints: * 1 . R/s for a sooner apt. * ROS: G eneral/Constitutional: Nausea d enies. V omiting d enies. H anthony Thirst d enies. L oss appetite d enies. C hills d enies. F atigue d enies.?Fever d enies. N ight Sweats d enies. U nexplained weight loss d enies. U nexplained weight gain d enies. H EENTM: Dentures d enies. D izziness d enies. G lasses/contacts a dmits. R etinopathy d enies. B lurred/double vision d enies. T MJ?denies. D ischarge/drainage d enies. I mplants d enies. S ore throat d enies. D ental implants d enies. H odalys of hearing d enies. D ifficulty chewing/swallowing/speaking d enies. N ose bleeds d enies. S ore mouth d enies. ? R espiratory: On Oxygen d enies. P neumonia/pleurisy d enies.?Bronchitis d enies. E mphysema d enies. C oughing d enies. C ough blood?denies. S hortness of breath d enies. W heezing d enies. C ardiovascular: Pacemaker d enies. M OUTREACH ANALYST d enies. W PW d enies. C HF d enies. H eart attack d enies. S eptal defect d enies. R apid beat d enies. C hest pain d enies. A trial Fib. d enies. M urmur/Palpitations d enies. G astrointestinal: Hemorrhoids d enies. S tomach/Abdominal pain d enies. D ark blood stool d enies. I rritable bowel d enies. C onstipation d enies. D iarrhea d enies. H ematology: Swelling d enies. C lots d enies. V aricose Veins d enies. B ruising d enies. B leeding problem d enies. G enitourinary: Blood urine d enies. F requent/Painfu/urination/bladder control d enies. K idney stones d enies. I nfection (UTI) d enies. N ephropathy d enies. s ex trans dis (STD) d enies. P rostate d enies. M usculoskeletal: Hammertoes a dmits. B unions d enies. B ack Pain a dmits. M uscle Cramps/ Resting d enies. M uscle cramps / walking a dmits.?Generalized aches and pains a dmits. W eakness d enies. I nteg.: Kirby d enies. S cars d enies. C orns/calluses?denies. I ngrown nails d enies. P ainful nails d enies. O pen Sores d enies. R ashes d enies. N eurologic: Difficulty sleeping d enies. B rain disorder d enies. N umbness d enies. B alance trouble d enies. C onfusion d enies. F ainting/blackouts d enies. T ingling d enies. T remors d enies. * Medical History: A rthritis, Back,Hip,and Knee pain, CAD (Cholesterol), Covid-19, Gout, Heart disease, High Blood Pressure, Osteoporosis, Reflux ( GERD), Measles, Mumps, Chicken pox. * Family History: M other: , diagnosed with Family history of arthritis, Unspecified essential hypertension, Other specified conditions influencing health status. F ather: , diagnosed with Unspecified essential hypertension, Unspecified heart disease. * Social History: T obacco Use: T obacco Use/Smoking A re you a: f ormer smoker A dditional Findings: Tobacco Non-User C urrent non-smoker Tobacco use other than smoking A re you an other tobacco user? N o D rugs/Alcohol: D rugs H ave you used drugs other than those for medical reasons in the past 12 months? N o Alcohol Screen D id you have a drink containing alcohol in the past year? Y es P oints 0 I nterpretation N egative M iscellaneous: C affeine: yes. Children: yes, 2. Exercise: no. Marital status: . * Medications: T aking Lisinopril , Taking Rosuvastatin Calcium , Taking Metoprolol Succinate , Taking Probenecid , Taking Rema Aspirin EC Low Dose , Taking Vitamin D3 * Allergies: A llopurinol. Objective: * Vitals: H t: 5 ft 1 in, Wt:120, BMI:22.67, Shoe size: 6.5, Ht-cm: 154.94 cm, Wt-k.43 kg. Assessment: Plan: * Treatment: * Images: * The named appointment provid er may or may not be the originator of this progress note, and it is not deemed complete until electronically signed by the appointment provider. Sign off status: Pending * Provider: Lynnette Cha DPM Date: 07/14/2023 Generated for Spencer stark/Ric/Alexander on: 03:09 PM EST
--- OUTSIDE RECORDS SUMMARY | 2024-05-14 07:30 | XMS_ITS ---
Author Organization [facility] Francia tab[facility] [place] Address [address] [place] [address] Care Team Providers Care Personal Carer Name Role Phone Ilan MCKEON, Ralf Primary Care Provider UnavailRebecca Marie [phone] Encounters Encounter Location Date Provider Diagnosis [address] [address] 05/14/2024 Rebecca Vang Plan Of Treatment No Information Progress Notes * Sharla ANDRESDOB:1955 (69 yo F)Acc No.[id number]:05/14/2024 Progress Notes Patient: Sharla LINARES Provider: Ben Vang DPM :1955 A ge:68 Y S ex:Female Date:05/14/2024 [facility] Pcp:Ralf Talavera MD Subjective: * Chief Complaints: * * Medical History: Objective: * Vitals: Assessment: Plan: * Treatment: * Images: * The named appointment provid er may or may not be the originator of this progress note, and it is not deemed complete until electronically signed by the appointment provider. Sign off status: Pending * Provider: Ben Vang DPM Date: 07/14/2023 Generated for Printi ng/Fahowardg/eTransmitting on: 03:09 PM EST
[2025-06-21 11:21] LABS: MANUAL DIFF FLAG NO
[2025-06-21 11:43] LABS: Hematocrit 32.8 % (37.0-47.0); Hemoglobin 11.2 g/dl (12.0-16.0); Imm Gran Abs Auto 0.04 X10*3/uL (0.00-0.03); Imm Gran Pct Auto 0.5 % (0.0-0.4); Lymphocytes Absolute Auto 2.0 X10*3/uL (1.2-4.9); Mean Corpuscular HGB Conc 34.1 g/dl (31.0-35.0); Mean Corpuscular Hemoglobin 33.2 pg (27.0-33.0); Mean Corpuscular Volume 97.3 fL (80.0-98.0); NRBC Abs Auto 0.000 X10*3/uL (0.0-0.012); NRBC Pct Auto 0.0 /100WBC (0.0-0.2); Platelet Count 241 X10*3/uL (160-400); Red Blood Count 3.37 X10*6/uL (4.20-5.50); White Blood Count 7.8 X10*3/uL (4.8-10.8)
[2025-06-21 11:58] LABS: Appearance Urine Clear; Glucose Urine UA Negative (Negative); PH 6.0 (5.0-9.0); Specific Gravity - Urine 1.020 (1.005-1.025)
[2025-06-21 13:07] LABS: Alanine Aminotransferase 18 U/L (0-31); Albumin Level 4.1 g/dL (3.5-5.0); Alkaline Phosphatase 85 U/L (39-117); Anion Gap 14 (12-20); Aspartate Amino Transferase 39 U/L (5-31); Blood Urea Nitrogen 16 mg/dL (9-16); Calcium 9.9 mg/dL (8.4-10.2); Carbon Dioxide 25 mmol/L (22-29); Chloride 105 mmol/L (96-108); Cholesterol 160 mg/dL (<200); Estimated Glomerular Filt Rate 48; HDL Cholesterol 81 mg/dL (>40); Iron 76 mcg/dL (30-160); Magnesium 1.6 mg/dL (1.6-2.6); Percent Iron Saturation 24 % (15-50); Potassium 4.2 mmol/L (3.3-5.1); Sodium 140 mmol/L (135-145); Total Iron Binding Capacity 316 mcg/dL (228-428); Total Protein 7.2 g/dL (6.5-8.0); Triglycerides 95 mg/dL (<150); Unsaturated Iron Binding 240 ug/dL
[2025-06-21 13:08] LABS: Ferritin 119 ng/mL (10-250)
[2025-06-21 13:22] LABS: Folate 9.0 ng/mL (> or = 4.0); Vitamin B12 223 pg/mL (200-900)
[2025-06-21 13:52] LABS: Free T4 (Free Thyroxine) 0.66 ng/dL (0.71-1.85)
--- OUTSIDE RECORDS SUMMARY | 2025-06-21 15:10 | XMS_ITS | Patient Health Record ---
[facility] Address [address] [place] [address] Care Team Providers Care Compounder [employer] Name Role Phone Ilan MCKEON, Ralf Primary Care Provider Rebecca Robison Unavailable [phone] Allergies Allergen (clinical drug ingredient) Drug/Non Drug [...] luis 4mg as directed orally a s directed; Duration: 6 days 04/07/2024 Active Metoprolol Tartrate 25 MG TAKE 1 TABLET BY MOUTH TWICE A DAY Oral; Duration: 90 Days Active ASO Ankle/Foot Stablizing AFO As directed Wear Daily; Duration: as needed 04/07/2024 Active Probenecid 500 MG TAKE 1 TABLET BY CANDIDO TH TWICE A DAY Oral; Duration: 90 Days Active Rosuvastatin Calcium 40 MG Oral; Duration: 90 Days Active Rema Aspirin EC Low Dose Active Lisinopril 10 MG Oral; Duration: 90 Days Active Vitamin D3 Active Vitamin [...] Status Risk Notes Problem Plantar fascial fibromatosis (78033338) Plantar fascial fibromatosis (M72.2) Active confirmed Problem Localized, primary osteoarthritis of the ankle and/or foot (721571251) 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) Active confirmed Problem Localized, primary osteoarthritis of the ankle and/or foot (291346962) Osteoarthritis of left ankle or foot (M19.072) Active confirmed Problem Osteoarthritis of midtarsal joint of left foot ([id number] ) Osteoarthritis of midtarsal joint of left foot (M19.072) Active confirmed Plan Of Treatment Pending Test Test Name Order Date X ray : Ankle, left 3V 04/07/2024 X ray : Foot, left 3V 04/07/2024 Insurance Providers Payer Name Payer Address Payer Phone Subscriber Number Group Number Insured Name Patient Relationship to Insured Coverage Start Date Coverage End Date Medicare [employer] [address] [place] [address] [id number] Sharla Andres Self - patient is the insured [facility] [address] [place] [address] [phone] [id number] Sharla Andres Self - patient is the insured Medical (General) History Medical History History ICD Code Arthritis Back,Hip,and Knee pain CAD (Cholesterol) covid-19 Gout Heart disease High Blood Pressure Osteoporosis Reflux ( GERD) Measles Mumps Chicken pox
== END 2025-06-21 11:10 | disposition home or self-care (01) ==
LOC: HO.LAB 11:09
PROVIDERS: PCP Physician Assistant Medical; Visit Provider Physician Assistant Medical
DX: Z00.00 Encounter for general adult medical examination without abnormal findings (principal); D64.9 Anemia, unspecified; Z13.21 Encounter for screening for nutritional disorder; Z13.1 Encounter for screening for diabetes mellitus; Z13.6 Encounter for screening for cardiovascular disorders
CPT/HCPCS: 36415; 80053; 80061; 80076; 81003; 82248; 82306; 82607; 82728; 82746; 83036; 83540; 83735; 84439; 84443; 85025; 86140